=== PATIENT | male | born 1940 | race Caucasian/White ===

== ENCOUNTER 2016-10-24 04:56 | Inpatient (IN) | payer MEDICARE, OTHER ==
[~2016-10-24] VITALS: Ht 180.3 cm; Wt 89.0 kg
[2016-10-24] VITALS (11 sets, daily range): BP systolic 118–185; BP diastolic 61–90; PULSE 67–111; RESP 16–18; TEMP 97.9; O2SAT 94–99
[2016-10-24] MEDS ORDERED: TAMS5CAP PO (05:04)
[2016-10-24] MEDS ORDERED: blood pressure med (05:06)
[2016-10-24] MEDS ORDERED: ASPIRIN 81 MG CHEW TAB PO ONE (05:15)
[2016-10-24] MEDS ORDERED: SODIUM CHLORIDE 0.9% FLUSH 5 ML FLUSH IVF PRN (05:15)
[2016-10-24] MEDS ORDERED: NITROGLYCERIN 2% OINT 1 GM PACKET TOP ONE (05:15)
[2016-10-24] MEDS: NITROGLYCERIN 0.4 MG SL 25 TABS/BTL SL SCH ×3 (05:25→05:55)
[2016-10-24 05:36] LABS: AUTOMATED NEUTROPHIL # 4.1 TH/MM3 (1.8-7.7); BASOPHIL # 0.1 TH/MM3 (0-0.2); BASOPHIL % 0.9 % (0.0-2.0); EOSINOPHIL # 0.2 TH/MM3 (0-0.4); EOSINOPHIL % 3.2 % (0.0-4.0); HEMATOCRIT 42.3 % (39.0-51.0); HEMO FLAGS DIFF FINAL; LYMPH % 23.6 % (9.0-44.0); LYMPHOCYTE # 1.6 TH/MM3 (1.0-4.8); MEAN CELL VOLUME 92.9 FL (80.0-100.0); MEAN CORPUSCULAR HEMOGLOBIN 32.4 PG (27.0-34.0); MEAN CORPUSCULAR HGB CONC 34.9 % (32.0-36.0); MONO % 13.1 % (0.0-8.0); NEUT % 59.2 % (16.0-70.0); PLATELET COUNT 142 TH/MM3 (150-450); RED BLOOD COUNT 4.56 MIL/MM3 (4.50-5.90); RED CELL DISTRIBUTION WIDTH 16.1 % (11.6-17.2); WHITE BLOOD COUNT 6.9 TH/MM3 (4.0-11.0)
[2016-10-24] MEDS ORDERED: THIAMINE INJ 100 MG in SODIUM CHLORIDE 0.9% INJ 100 ML IV ONE (05:45)
[2016-10-24] MEDS ORDERED: MAGNESIUM SULFATE 1 GM PREMIX 100 ML IV ONE (05:45)
[2016-10-24 05:48] LABS: APTT (PATIENT) 24.3 SEC (24.3-30.1); INTERNATIONAL NORMALIZED RATIO 0.9 RATIO
--- NOTE | 2016-10-24 05:52 | RADRPT ---
EXAM DATE/TIME: 10/24/2016 05:21 [facility] COMPARISON: No previous studies available for comparison. INDICATIONS : Chest and abdominal pain x 3 weeks. MEDICAL HISTORY : Hypertension. Diabetes mellitus type II. Myocardial infarction. COPD, A-FIB SURGICAL HISTORY : Pacemaker. ENCOUNTER: Initial ACUITY: 3 weeks PAIN SCORE: 4/10 LOCATION: Bilateral chest FINDINGS: A single view of the chest demonstrates the lungs to be symmetrically aerated without evidence of mas s, infiltrate or effusion. Heart normal in size. Left-sided pacemaker with single intact lead. The ca rdiomediastinal contours are unremarkable. Osseous structures are intact. CONCLUSION: No acute disease. Joe Suero MD on October 24, 2016 at 5:50 Board Certified Radiologist. This report was verified electronically.
--- NOTE | 2016-10-24 06:02 | PD ---
HPI Chief Complaint: Chest Pain Time Seen by Provider: 05:13 Travel History International Travel<30 days: No Contact w/Intl Traveler<30days: No Traveled to known affect area: No History of Present Illness HPI The patient is 76 year old male who presents to the [facility] emergency department with a history of chest pain that he reports began at 4 PM yesterday. The patient reports that the pain isn't constant. He reports that it is associated with nausea without vomiting. He reports that he has had shortness of breath and diaphoresis. The patient reports that he has a history of coronary artery disease status post myocardial infarction in the past. He reports that his last cardiac catheterization was 4 months ago in [place]. He denies having any stents placed. The patient reports that he does have a history of congestive heart failure and atrial fibrillation, prostate cancer, COPD, hypertension, diabetes mellitus. He reports that he stopped taking his medications a month ago as he did not like taking medications and he felt like he did not need them. The patient reports that he just arrived in the area from [place] a week ago. The patient reports that to relieve the pain he attempted to drink more alcohol. He reports that he normally drinks a pint of vodka per day. The patient reports that he smokes approximately half pack of cigarettes per day and has been attempting to quit over the last month. I review of systems, the patient reports that he has had some recent cough and congestion. The patient denies any known recent fevers, neck pain, abdominal pain, vomiting, diarrhea, urinary symptoms, or neurologic symptoms. [facility] Past Medical History Narrative Medical The patient's past medical history is significant for prostate cancer, COPD, congestive heart failure, atrial fibrillation, history of stroke, history of myocardial infarction, history of hypertension, diabetes mellitus. Atrial Fibrillation: Yes Cardiovascular Problems: Yes (stroke) Congestive Heart Failure: Yes COPD: Yes Diabetes: Yes Patient Takes Glucophage: No Hypertension: Yes Medical other: Yes (prostate ca) Myocardial Infarction: Yes Tetanus Vaccination: Unknown Influenza Vaccination: No Past Surgical History Narrative Surgical The patient's past surgical history is significant for a pacemaker placement. Pacemaker: Yes Social History Alcohol Use: Yes (1 pint of vodka daily.) Tobacco Use: Yes (one half pack per day) Substance Use: No Allergies-Medications (Allergen,Severity, Reaction): Coded Allergies: No Known Allergies (Unverified , 10/24/16) Reported Meds & Prescriptions Reported Meds & Active Scripts Active Reported [blood pressure med] patient does not know what blood pressure med it is Flomax (Tamsulosin HCl) 0.4 Mg Cap 0.4 Mg PO HS Review of Systems Except as stated in HPI: all other systems reviewed are Neg General / Constitutional: No: Fever Eyes: No: Visual changes HENT: Positive: Congestion, No: Headaches Cardiovascular: Positive: Chest Pain or Discomfort, Diaphoresis, Dyspnea on exertion Respiratory: Positive: Cough, Shortness of Breath Gastrointestinal: Positive: Nausea, No: Abdominal Pain Genitourinary: No: Dysuria Musculoskeletal: No: Pain Skin: No Rash Neurologic: No: Weakness Psychiatric: No: Depression Endocrine: No: Polydipsia Hematologic/Lymphatic: No: Easy Bruising Physical Exam Narrative General: The patient is a well-developed well-nourished male in no acute distress. Head and Neck exam: Head is normocephalic atraumatic. Eyes: Pupils are equal round and reactive to light. Nose: Midline septum with pink mucous membranes Mouth: Dentition unremarkable. Moist mucus membranes. Posterior oropharynx is not erythematous. No tonsillar hypertrophy. Uvula midline. Airway patent. Neck: No palpable lymphadenopathy. No nuchal rigidity. No thyromegaly. Cardiovascular: Irregularly irregular with a rate in the 90s to low 100 without murmurs, gallops , or rubs. The patient's telemetry is consistent with his prior history of atrial fibrillation. Lungs: Clear to auscultation bilaterally. No wheezes, rhonchi, or rales. Abdomen: Soft, tenderness reported on palpation of the midepigastric area. No other tenderness on palpation of the other quadrants of the abdomen. Normal bowel sounds are audible. No guarding, rebound, or rigidity. No tenderness on palpation of McBurney's point. Extremities: No clubbing, cyanosis, or edema. 2+ pulses in all 4 extremities. No calf tenderness on palpation. Neurologic Exam: Grossly nonfocal. Skin Exam: No rash noted. Intact skin that is warm and dry. Data Data Last Documented VS Vital Signs Date Time Temp Pulse Resp B/P Pulse Ox O2 Delivery O2 Flow Rate FiO2 10/24/16 06:29 69 18 134/74 98 Nasal Cannula 2 10/24/16 04:58 97.9 Orders Electrocardiogram (10/24/16 05:13) B-Type Natriuretic Peptide (10/24/16 05:13) Ckmb (Isoenzyme) Profile (10/24/16 05:13) Complete Blood Count With Diff (10/24/16 05:13) Comprehensive Metabolic Panel (10/24/16 05:13) D-Dimer (10/24/16 05:13) Magnesium (Mg) (10/24/16 05:13) Prothrombin Time / Inr (Pt) (10/24/16 05:13) Act Partial Throm Time (Ptt) (10/24/16 05:13) Troponin I (10/24/16 05:13) Chest, Single Ap (10/24/16 05:13) Ecg Monitoring (10/24/16 05:13) Bilateral Bp Monitoring (10/24/16 05:13) Iv Access Insert/Monitor (10/24/16 05:13) Oximetry (10/24/16 05:13) Oxygen Administration (10/24/16 05:13) Aspirin Chew (Aspirin Chew) (10/24/16 05:15) Nitroglycerin 2% Oint (Nitroglycerin 2% (10/24/16 05:15) Sodium Chloride 0.9% Flush (Ns Flush) (10/24/16 05:15) Nitroglycerin Sl (Nitrostat Sl) (10/24/16 05:15) C-Reactive Protein (Crp) (10/24/16 05:13) Lipase (10/24/16 05:13) Blood Culture (10/24/16 05:13) Lactic Acid Sepsis Protocol (10/24/16 05:13) Magnesium Sulfate 1 Gm Premix (Magnesium (10/24/16 05:45) Thiamine Inj (Thiamine Inj) (10/24/16 05:45) Morphine Inj (Morphine Inj) (10/24/16 06:15) Ondansetron Inj (Zofran Inj) (10/24/16 06:15) Pantoprazole Inj (Protonix Inj) (10/24/16 06:15) CKMB (10/24/16 05:25) CKMB% (10/24/16 05:25) Sodium Chlor 0.9% 1000 Ml Inj (Ns 1000 M (10/24/16 06:15) Ct Pulmonary Angiogram (10/24/16 06:14) Alcohol (Ethanol) (10/24/16 06:15) Urinalysis - C+S If Indicated (10/24/16 06:18) Iohexol 350 Inj (Omnipaque 350 Inj) (10/24/16 06:38) Place In Observation (10/24/16 ) Vital Signs (Adult) Q4H (10/24/16 06:41) Activity Oob With Assistance (10/24/16 06:41) ^ Top Hat Body Maker / Telemetry .CONTINUOUS (10/24/16 06:41) Intake + Output KAILEE.QSHIFT (10/24/16 06:41) Diet Heart Healthy (10/24/16 Breakfast) Sodium Chlor 0.9% 1000 Ml Inj (Ns 1000 M (10/24/16 06:41) Sodium Chloride 0.9% Flush (Ns Flush) (10/24/16 06:45) Sodium Chloride 0.9% Flush (Ns Flush) (10/24/16 09:00) Ondansetron Inj (Zofran Inj) (10/24/16 06:45) Bisacodyl Supp (Dulcolax Supp) (10/24/16 06:45) Comprehensive Metabolic Panel (10/25/16 06:00) Complete Blood Count With Diff (10/25/16 06:00) Troponin I (10/24/16 11:00) Troponin I (10/24/16 17:00) Scd Bilateral/Knee High KAILEE.BID (10/24/16 06:41) Jordon Bilateral/Knee High KAILEE.QSHIFT (10/24/16 06:41) Acetaminophen (Tylenol) (10/24/16 06:45) Morphine Inj (Morphine Inj) (10/24/16 06:45) Oxycodone (Roxicodone) (10/24/16 06:45) Intake + Output KAILEE.QSHIFT (10/24/16 06:41) ^ Seizure Precautions (10/24/16 06:41) Multivitamin Inj (Mvi-12 Inj)... (10/24/16 06:45) Thiamine Inj (Thiamine Inj) (10/25/16 06:45) Thiamine (Vit B1) (Vitamin B1) (10/27/16 09:00) Tamsulosin (Flomax) (10/24/16 21:00) Lactic Acid (10/24/16 11:00) Admit Order (Ed Use Only) (10/24/16 07:06) Labs Laboratory Tests Test 10/24/16 05:25 White Blood Count 6.9 TH/MM3 Red Blood Count 4.56 MIL/MM3 Hemoglobin 14.8 GM/DL Hematocrit 42.3 % Mean Corpuscular Volume 92.9 FL Mean Corpuscular Hemoglobin 32.4 PG Mean Corpuscular Hemoglobin 34.9 % Concent Red Cell Distribution Width 16.1 % Platelet Count 142 TH/MM3 Mean Platelet Volume 8.0 FL Neutrophils (%) (Auto) 59.2 % Lymphocytes (%) (Auto) 23.6 % Monocytes (%) (Auto) 13.1 % Eosinophils (%) (Auto) 3.2 % Basophils (%) (Auto) 0.9 % Neutrophils # (Auto) 4.1 TH/MM3 Lymphocytes # (Auto) 1.6 TH/MM3 Monocytes # (Auto) 0.9 TH/MM3 Eosinophils # (Auto) 0.2 TH/MM3 Basophils # (Auto) 0.1 TH/MM3 CBC Comment DIFF FINAL Differential Comment Prothrombin Time 10.0 SEC Prothromb Time International 0.9 RATIO Ratio Activated Partial 24.3 SEC Thromboplast Time D-Dimer Quantitative (PE/DVT) 1.62 MG/L FEU Sodium Level 139 MEQ/L Potassium Level 5.1 MEQ/L Chloride Level 107 MEQ/L Carbon Dioxide Level 23.6 MEQ/L Anion Gap 8 MEQ/L Blood Urea Nitrogen 15 MG/DL Creatinine 1.05 MG/DL Estimat Glomerular Filtration 69 ML/MIN Rate Random Glucose 131 MG/DL Lactic Acid Level 3.0 mmol/L Calcium Level 8.0 MG/DL Magnesium Level 1.9 MG/DL Total Bilirubin 0.6 MG/DL Aspartate Amino Transf 99 U/L (AST/SGOT) Alanine Aminotransferase 69 U/L (ALT/SGPT) Alkaline Phosphatase 75 U/L Total Creatine Kinase 108 U/L Creatine Kinase MB 1.7 NG/ML Troponin I LESS THAN 0.02 NG/ML C-Reactive Protein 0.48 MG/DL B-Type Natriuretic Peptide 105 PG/ML Total Protein 6.6 GM/DL Albumin 3.1 GM/DL Lipase 130 U/L [facility] Medical Decision Making Medical Screen Exam Complete: Yes Emergency Medical Condition: Yes Medical Record Reviewed: Yes Interpretation(s) Last Impressions CT Angiography 10/24/16613 Signed Impressions: Service Date/Time: Monday, October 24, 2016 06:30 - CONCLUSION: 1. No evidence for pulmonary emboli. 2. Moderate/severe emphysema without infiltrate. 3. Nonspecific 1.9 cm low-density in the left lobe of the liver. Nonemergent abdominal sonogram maybe warranted. 4. Left-sided pacemaker. Joe Suero MD Chest X-Ray 10/24/16512 Signed Impressions: Service Date/Time: Monday, October 24, 2016 05:21 - CONCLUSION: No acute disease. Joe Suero MD Differential Diagnosis Acute coronary syndrome, versus congestive heart failure exacerbation, versus pneumonia, versus exacerbation of cardiac arrhythmia, versus electrolyte abnormality, versus pancreatitis, versus acid reflux Narrative Course During the course of the patients emergency department visit, the patients history, examination, and differential diagnosis were reviewed with the patient. The patient had IV access obtained and blood work sent for analysis. The patient was placed on a monitor and storage bin tender with oximetry and blood pressure monitoring. An EKG was done on arrival. The patient's EKG reveals atrial fibrillation with RVR, heart rate of 100, occasional PVCs are noted, nonspecific ST abnormalities are noted, no acute ST segment elevation is noted. T waves are inverted in V3, V4, V5, V6. The patient was brought in by ambulance services and was given 2 baby aspirin and 1 sublingual nitroglycerin prior to arrival. The patient was provided nitroglycerin sublingual every 5 minutes 3 when necessary pain. The patient was given nitroglycerin 1 inch the chest wall. The patient was noted on the monitor and storage bin tender to have episodes of nonsustained V. tach without any other associated symptoms. Has were placed on the patient' s chest wall. The patient was started on magnesium 1 g IV. The patient was given morphine for pain, Zofran for nausea. The patients laboratory studies were reviewed and remarkable for a white count of 6.9, hemoglobin 14.8, platelets 142 with 13.1 monocytes. CMP is remarkable for GFR 69, glucose 131, lactic acid 3.0, calcium 8.0, AST 99, CPK 108, troponin I less than 0.02, C-reactive protein 0.48, BNP is 105, lipase 130, d- dimer is 1.62, PT PTT within normal limits. Due to the elevated d-dimer the patient will have a CTA to rule out PE. Due to the patient's elevated lactic acid the patient will be given normal saline IV fluids. Radiology studies were reviewed and remarkable for a chest x-ray that is unremarkable. CTA to rule out PE is negative for pulmonary embolism. The patients results were discussed with the patient, including the plan of care. I explained that further testing and/ or monitoring is indicated based on the patients history, examination, and/ or laboratory findings. Therefore, I recommended admission for additional evaluation. The patient expressed understanding and was agreeable with this plan. The patient was admitted to the hospital in guarded condition and sent to a bed under the care of the [facility]. Sepsis Criteria SIRS Criteria (2 or more): Heart rate over 90 Severe Sepsis (+one): Lactate >2 Physician Communication Physician Communication The patient's case was discussed with Dr. Enriquez who did agree to admit the patient for further evaluation and treatment at this time. Diagnosis Primary Impression: Chest pain, rule out acute myocardial infarction Additional Impressions: History of coronary artery disease Lactic acidosis Admitting Information Admitting Physician Requests: it Leela Ramos MD Oct 24, 2016 06:01
[2016-10-24 06:03] LABS: ALKALINE PHOSPHATASE 75 U/L (45-117); ALT (GPT) 69 U/L (12-78); ANION GAP 8 MEQ/L (5-15); AST (GOT) 99 U/L (15-37); BICARBONATE 23.6 MEQ/L (21.0-32.0); BLOOD UREA NITROGEN 15 MG/DL (7-18); CHLORIDE 107 MEQ/L (98-107); CREATINE KINASE 108 U/L (39-308); GLOMERULAR FILTRATION RATE 69 ML/MIN (>89); MAGNESIUM 1.9 MG/DL (1.5-2.5); SODIUM (NA) 139 MEQ/L (136-145); TOTAL BILIRUBIN ADULT 0.6 MG/DL (0.2-1.0)
[2016-10-24 06:06] LABS: POTASSIUM 5.1 MEQ/L (3.5-5.1)
[2016-10-24] MEDS ORDERED: MORPHINE SULFATE 4 MG/ML INJ IV PUSH ONE (06:15)
[2016-10-24] MEDS ORDERED: SODIUM CHLOR 0.9% 1000 ML INJ 1,000 ML IV ONE (06:15)
[2016-10-24] MEDS ORDERED: ONDANSETRON HCL 4 MG/2 ML VIAL IV PUSH ONE (06:15)
[2016-10-24] MEDS ORDERED: PANTOPRAZOLE SODIUM 40 MG VIAL IV PUSH ONE (06:15)
[2016-10-24 06:19] LABS: CKMB 1.7 NG/ML (0.5-3.6)
[2016-10-24] MEDS ORDERED: IOHEXOL 350 MG/ML 10 ML VIAL (for RAD DIAG) IV ONE (06:38)
[2016-10-24] MEDS ORDERED: SODIUM CHLOR 0.9% 1000 ML INJ 1,000 ML IV SCH (06:41)
[2016-10-24] MEDS ORDERED: BISACODYL 10 MG SUPP PR PRN (06:45)
[2016-10-24] MEDS ORDERED: ACETAMINOPHEN 325 MG TAB PO PRN (06:45)
[2016-10-24] MEDS ORDERED: ONDANSETRON HCL 4 MG/2 ML VIAL IVP PRN (06:45)
[2016-10-24] MEDS ORDERED: SODIUM CHLORIDE 0.9% FLUSH 5 ML FLUSH FLUSH PRN (06:45)
--- NOTE | 2016-10-24 06:51 | RADRPT ---
EXAM DATE/TIME: 10/24/2016 06:30 [facility] COMPARISON: CHEST SINGLE AP, October 24, 2016, 5:21. INDICATIONS : Chest pain. Evaluate for embolism. IV CONTRAST: 80 cc Omnipaque 350 (iohexol) IV RADIATION DOSE: 18.13 CTDIvol (mGy) MEDICAL HISTORY : Chronic obstructive pulmonary disease. Hypertension. Congestive heart failure. SURGICAL HISTORY : Pacemaker. ENCOUNTER: Initial ACUITY: 1 day PAIN SCALE: 5/10 LOCATION: chest TECHNIQUE: Volumetric scanning of the chest was performed using a pulmonary embolism protocol MIP images were re constructed. Using automated exposure control and adjustment of the mA and/or kV according to patien t size, radiation dose was kept as low as reasonably achievable to obtain optimal diagnostic quality images. FINDINGS: PULMONARY ARTERIES: No filling defects are seen in the pulmonary arteries through the segmental level. LUNGS: Moderate/severe centrilobular emphysema. There is no consolidation or pneumothorax . No concerning p ulmonary nodule is visualized. PLEURAE: There is no pleural thickening or pleural effusion. MEDIASTINUM: There is good visualization of the great vessels of the middle mediastinum. No evidence of mediastin al or hilar adenopathy/mass. Minimal coronary artery calcifications. MUSCULOSKELETAL: Within normal limits for patient age. MISCELLANEOUS: The visualized upper abdominal organs demonstrate no acute abnormality. Left-sided pacemaker. CONCLUSION: 1. No evidence for pulmonary emboli. 2. Moderate/severe emphysema without infiltrate. 3. Nonspecific 1.9 cm low-density in the left lobe of the liver. Nonemergent abdominal sonogram maybe warranted. 4. Left-sided pacemaker. Joe Suero MD on October 24, 2016 at 6:46 Board Certified Radiologist. This report was verified electronically.
[2016-10-24] MEDS: MULTIVITAMIN INJ 10 ML, FOLIC ACID INJ 1 MG in SODIUM CHLORID 0.9% 500 ML INJ 500 ML IV SCH (07:26)
[2016-10-24 07:30] LABS: LACTIC ACID GHOST NOT REPORTABLE
--- NOTE | 2016-10-24 08:20 | EKG ---
Date Performed: 10/24/2016 Time Performed: 04:56:32 PTAGE: 76 years EKG: ATRIAL FIBRILLATION WITH RAPID VENTRICULAR RESPONSE SEPTAL MYOCARDIAL INFARCTION T-WAVE ABN ORMALITY, CONSIDER ANTEROLATERAL AND INFERIOR ISCHEMIA ABNORMAL ECG NO PREVIOUS TRACING DOCTOR: Piotr Arce Interpretating Date/Time 10/24/2016 08:19:53
[2016-10-24 08:50] LABS: BLOOD, URINE NEG (NEG); GLUCOSE,URINE NEG (NEG); KETONE, URINE NEG (NEG); MUCUS URINE FEW /lpf (OCC); NITRITE,URINE NEG (NEG); PH, URINE 5.5 (5.0-8.5); URINE COLOR YELLOW (YELLW/STRAW)
[2016-10-24 08:53] LABS: COMMENT (UR) CULT NOT INDICATED; CULTURE IF INDICATED CULT NOT INDICATED
[2016-10-24] MEDS: SODIUM CHLORIDE 0.9% FLUSH 5 ML FLUSH FLUSH SCH ×2 (09:00→20:54)
[2016-10-24] MEDS: MORPHINE SULFATE 4 MG/ML INJ IV PRN ×2 (10:37→16:25)
[2016-10-24] MEDS ORDERED: RESP: ALBUTEROL 2.5 MG/IPRATROPIUM 0.5 MG NEB (PRN) NEB (11:15)
[2016-10-24] MEDS: LORazepam 2 MG/ML VIAL IV PUSH PRN ×2 (13:56→21:17)
[2016-10-24] MEDS: FOLIC ACID 1 MG TAB PO SCH (14:00)
[2016-10-24] MEDS ORDERED: LORazepam 2 MG/ML VIAL IV PUSH PRN (14:00)
[2016-10-24] MEDS ORDERED: THIAMINE INJ 100 MG in SODIUM CHLORIDE 0.9% INJ 100 ML IV SCH (14:00)
[2016-10-24] MEDS ORDERED: LORazepam 2 MG TAB PO PRN (14:00)
[2016-10-24] MEDS ORDERED: FLUMAZENIL 1 MG/10 ML VIAL IV PUSH PRN (14:00)
[2016-10-24] MEDS: MULTIVITAMIN TAB PO SCH (14:00)
--- NOTE | 2016-10-24 15:51 | EC ---
Study Study Date:10/24/2016 STUDY CONCLUSIONS SUMMARY - Left ventricle: The cavity size was normal. Wall thickness was normal. Systolic function was normal. The estimated ejection fraction was in the range of 60% to 65%. - Aortic valve: Valve area: 1.8cm^2 (Vmax). - Tricuspid valve: Mild regurgitation. If LV function is below 40, please consider prescribing an ACEI or ARB or document rationale for non-use. PROCEDURE DATA STUDY STATUS: Elective. Procedure: Transthoracic echocardiography. Image quality was suboptimal. Scanning was performed from the parasternal, apical, and subcostal acoustic windows. Study completion: The patient tolerated the procedure well. Transthoracic echocardiography. M-mode, complete 2D, complete spectral Doppler, and color Doppler. Patient status: Inpatient. CARDIAC ANATOMY LEFT VENTRICLE: The cavity size was normal. Wall thickness was normal. Systolic function was normal. The estimated ejection fraction was in the range of 60% to 65%. Images were inadequate for LV wall motion assessment. AORTIC VALVE: Trileaflet; normal thickness leaflets. Doppler: Transvalvular velocity was within the normal range. There was no stenosis. No regurgitation. Valve area: 1.8cm^2 (Vmax). AORTA: Aortic root: The aortic root was normal in size and mildly calcified. MITRAL VALVE: Structurally normal valve. Doppler: Transvalvular velocity was within the normal range. There was no evidence for stenosis. No regurgitation. LEFT ATRIUM: The atrium was normal in size. RIGHT VENTRICLE: The cavity size was normal. Wall thickness was normal. Pacer wire or catheter noted in right ventricle. PULMONIC VALVE: Doppler: Transvalvular velocity was within the normal range. There was no evidence for stenosis. No regurgitation. TRICUSPID VALVE: Structurally normal valve. Doppler: Transvalvular velocity was within the normal range. Mild regurgitation. PULMONARY ARTERY: Not visualized. Systolic pressure was within the normal range. RIGHT ATRIUM: The atrium was normal in size. PERICARDIUM: There was no pericardial effusion. SYSTEMIC VEINS: Inferior vena cava: Not visualized. BASIC MEASUREMENTS ADULT Normal Left ventricle LV internal dimension, ED, chordal level, *36.3 mm 43-52 PLAX LV internal dimension, ES, chordal level, 25.2 mm 23-38 PLAX Fractional shortening, chordal level, PLAX 31 % >29 LV posterior wall thickness, ED 10.9 mm IVS/LVPW ratio, ED 0.94 <1.3 Ventricular septum Septal thickness, ED 10.2 mm Aortic valve Leaflet separation 15 mm 15-26 BASIC MEASUREMENTS ADULT Normal Aortic valve Leaflet separation 15 mm 15-26 Aorta Root diameter, ED 30 mm 20-37 Left atrium Anterior-posterior dimension, ES *52 mm 19-40 LA/aortic root ratio 1.73 DOPPLER MEASUREMENTS ADULT Normal Main pulmonary artery Pressure, S 27 mm Hg =30 Aortic valve Peak velocity, S 125 cm/s Valve area, Vmax 1.8 cm^2 Tricuspid valve Regurgitant peak velocity 238 cm/s Peak RV-RA gradient, S 23 mm Hg Maximal regurgitant velocity 238 cm/s Systemic veins Estimated CVP 10 mm Hg Right ventricle RV pressure, S *33 mm Hg <30 Pulmonic valve Peak velocity, S 126 cm/s LEGEND: Mean values are shown as u=mean value. Asterisk (*) chávez values outside specified normal range. Prepared and signed by Chucky Ramos [id number]
[2016-10-24] MEDS: INSULIN ASPART SUPPLEMENTAL SCALE SQ SCH ×2 (16:00→21:00)
[2016-10-24] MEDS ORDERED: DILTIAZEM INJ 125 MG in SODIUM CHLORIDE 0.9% INJ 100 ML IV SCH (16:00)
[2016-10-24] MEDS ORDERED: DILTIAZEM HCL 25 MG/5 ML VIAL IVP ONE (16:00)
--- NOTE | 2016-10-24 16:09 | HHI.HP ---
[facility] No Primary Care Physician Admission Diagnosis CP RO SD, ho CAD, lactic acidosis Diagnoses: Chief Complaint: Chest pain, shortness of breath Travel History International Travel<30 Days: No Contact w/Intl Traveler <30 Da: No Traveled to Known Affected Are: No History of Present Illness The patient is a 76-year-old male with a past medical history of atrial fibrillation and heart failure who is presenting to the hospital with chest pain and shortness of breath. The patient says he was diagnosed with atrial fibrillation about 7 years ago and he says since then he has had problems with an elevated heart rate and episodes of chest pain and shortness of breath. He says the pain is located in the center of his chest and radiates down both arms. He rates the pain as a 9 out of 10 in severity. He says it is accompanied by shortness of breath and sweating. He says he felt like he couldn 't breathe. He says he generally gets these kind of episodes of chest pain one his atrial fibrillation acts up. He says he had a stress test done 6 months ago that was normal. 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 He says he had an ablation and a pacemaker placed years ago. He also mentions that he drinks a lot of alcohol and feels shaky. He is requesting medication to help with that. He denies a history of alcohol withdrawal seizure. The patient does endorse nausea and lack of appetite. Patient also states that he feels his right leg and arm are weak. He thinks he may have had a stroke in the past but he is not sure. Review of Systems Constitutional: COMPLAINS OF: Diaphoretic episodes, Change in appetite Respiratory: COMPLAINS OF: Cough, Shortness of breath Cardiovascular: COMPLAINS OF: Chest pain, Palpitations, Dyspnea on Exertion Gastrointestinal: COMPLAINS OF: Nausea Neurologic: COMPLAINS OF: Abnormal gait, Localized weakness, Tremor Psychiatric: COMPLAINS OF: Anxiety, Depression Past Family Social History Past Medical History Atrial fibrillation CAD CHF COPD Type 2 diabetes Hypertension Prostate cancer in remission Questionable history of CVA with right sided weakness Past Surgical History Ablation Pacemaker placement Allergies: Coded Allergies: No Known Allergies (Unverified , 10/24/16) Active Ordered Medications Current Medications Medications (Trade) Dose Ordered Sig/Bruon Route Start Time Stop Time Status Last Admin (NS 1000 ml Inj) 1,000 ml @ 100 mls/hr Q10H IV 10/24/16 06:41 10/24/16 16:40 10/24/16 12:32 (NS Flush) 2 ml UNSCH PRN FLUSH 10/24/16 06:45 (NS Flush) 2 ml BID FLUSH 10/24/16 09:00 (Zofran Inj) 4 mg Q6H PRN IVP 10/24/16 06:45 (Dulcolax Supp) 10 mg DAILY PRN MA 10/24/16 06:45 (Tylenol) 650 mg Q6H PRN PO 10/24/16 06:45 (Morphine Inj) 2 mg Q3H PRN IV 10/24/16 06:45 10/24/16 10:37 Oxycodone HCl 5 mg 5 mg Q4H PRN PO 10/24/16 06:45 10/24/16 07:30 (Mvi-12 Inj/ Folvite Inj/NS 500 ml Inj) 510.2 ml @ 125 mls/hr Q24H IV 10/24/16 06:45 10/29/16 06:44 10/24/16 07:26 (Vitamin B1) 100 mg DAILY PO 10/27/16 09:00 (Flomax) 0.4 mg HS PO 10/24/16 21:00 (Colace) 100 mg BID PO 10/24/16 21:00 (Ativan) 1 mg Q4H PRN PO 10/24/16 14:00 (Ativan Inj) 1 mg Q4H PRN IV PUSH 10/24/16 14:00 10/24/16 13:56 (Ativan) 2 mg Q2H PRN PO 10/24/16 14:00 (Ativan Inj) 2 mg Q2H PRN IV PUSH 10/24/16 14:00 (Ativan Inj) 2 mg Q1H PRN IV PUSH 10/24/16 14:00 (Ativan Inj) 2 mg Q15M PRN IV PUSH 10/24/16 13:45 (Folate) 1 mg DAILY PO 10/24/16 15:00 Multivitamins 1 tab 1 tab DAILY PO 10/24/16 15:00 (Thiamine Inj/NS Inj) 101 ml @ 101 mls/hr DAILY IV 10/25/16 09:00 Diltiazem HCl 20 mg 20 mg ONCE ONCE IVP 10/24/16 16:00 10/24/16 16:01 (Cardizem Inj/NS Inj) 125 ml @ 0 mls/hr TITRATE IV 10/24/16 16:00 (Cardizem) 60 mg QID PO 10/24/16 18:00 (Ecotrin Ec) 325 mg DAILY PO 10/25/16 09:00 Family History CAD Social History The pt smokes a half a pack a day. He drinks a pint of vodka daily. Has a history of opiate abuse. Physical Exam Vital Signs Vital Signs Date Time Temp Pulse Resp B/P Pulse Ox O2 Delivery O2 Flow Rate FiO2 10/24/16 13:58 95 18 185/90 96 Room Air 10/24/16 10:42 16 10/24/16 09:35 94 16 142/69 95 Room Air 10/24/16 08:27 16 10/24/16 06:29 69 18 134/74 98 Nasal Cannula 2 10/24/16 06:28 98 Nasal Cannula 2 10/24/16 06:28 98 Nasal Cannula 2 10/24/16 04:58 97.9 111 18 127/70 94 Physical Exam GENERAL: This is a well-nourished, well-developed patient, in no apparent distress. SKIN: No rashes, ecchymoses or lesions. Cool and dry. HEAD: Atraumatic. Normocephalic. No temporal or scalp tenderness. EYES: Pupils equal round and reactive. Extraocular motions intact. No scleral icterus. No injection or drainage. ENT: Nose without bleeding, purulent drainage or septal hematoma. Throat without erythema, tonsillar hypertrophy or exudate. Uvula midline. Airway patent. NECK: Trachea midline. No JVD or lymphadenopathy. Supple, nontender, no meningeal signs. CARDIOVASCULAR: Tachycardic. Irregularly irregular rhythm. RESPIRATORY: Decreased breath sounds. Mild wheezing noted. GASTROINTESTINAL: Abdomen soft, non-tender, nondistended. No hepato-splenomegaly , or palpable masses. No guarding. MUSCULOSKELETAL: Extremities without clubbing, cyanosis, or edema. No joint tenderness, effusion, or edema noted. NEUROLOGICAL: Awake and alert. Cranial nerves II through XII intact. Motor and sensory grossly within normal limits. Five out of 5 muscle strength in all muscle groups. Normal speech. PSYCH: Mood and affect appropriate. Laboratory Laboratory Tests Test 10/24/16 10/24/16 10/24/16 10/24/16 05:25 08:05 08:25 12:39 White Blood Count 6.9 Red Blood Count 4.56 Hemoglobin 14.8 Hematocrit 42.3 Mean Corpuscular Volume 92.9 Mean Corpuscular Hemoglobin 32.4 Mean Corpuscular Hemoglobin 34.9 Concent Red Cell Distribution Width 16.1 Platelet Count 142 Mean Platelet Volume 8.0 Neutrophils (%) (Auto) 59.2 Lymphocytes (%) (Auto) 23.6 Monocytes (%) (Auto) 13.1 Eosinophils (%) (Auto) 3.2 Basophils (%) (Auto) 0.9 Neutrophils # (Auto) 4.1 Lymphocytes # (Auto) 1.6 Monocytes # (Auto) 0.9 Eosinophils # (Auto) 0.2 Basophils # (Auto) 0.1 CBC Comment DIFF FINAL Differential Comment Prothrombin Time 10.0 Prothromb Time International 0.9 Ratio Activated Partial 24.3 Thromboplast Time D-Dimer Quantitative (PE/DVT) 1.62 Sodium Level 139 Potassium Level 5.1 Chloride Level 107 Carbon Dioxide Level 23.6 Anion Gap 8 Blood Urea Nitrogen 15 Creatinine 1.05 Estimat Glomerular Filtration 69 Rate Random Glucose 131 Lactic Acid Level 3.0 2.7 2.5 Calcium Level 8.0 Magnesium Level 1.9 Total Bilirubin 0.6 Aspartate Amino Transf 99 (AST/SGOT) Alanine Aminotransferase 69 (ALT/SGPT) Alkaline Phosphatase 75 Total Creatine Kinase 108 Creatine Kinase MB 1.7 Troponin I LESS THAN 0.02 0.02 C-Reactive Protein 0.48 B-Type Natriuretic Peptide 105 Total Protein 6.6 Albumin 3.1 Lipase 130 Urine Color YELLOW Urine Turbidity CLEAR Urine pH 5.5 Urine Specific [place] 1.025 Urine Protein NEG Urine Glucose (UA) NEG Urine Ketones NEG Urine Occult Blood NEG Urine Nitrite NEG Urine Bilirubin NEG Urine Urobilinogen LESS THAN 2.0 Urine Leukocyte Esterase NEG Urine RBC LESS THAN 1 Urine WBC 2 Urine Mucus FEW Microscopic Urinalysis Comment CULT NOT INDICATED Date/Time Procedure Status Source Growth 10/24/16 05:50 Aerobic Blood Culture Received Blood Peripheral Pending 10/24/16 05:50 Anaerobic Blood Culture Received Blood Peripheral Pending Result Diagram: 10/24/1652410/24/[address] Angiography 10/24/16613 Signed Impressions: Service Date/Time: Monday, October 24, 2016 06:30 - CONCLUSION: 1. No evidence for pulmonary emboli. 2. Moderate/severe emphysema without infiltrate. 3. Nonspecific 1.9 cm low-density in the left lobe of the liver. Nonemergent abdominal sonogram maybe warranted. 4. Left-sided pacemaker. Joe Suero MD Chest X-Ray 10/24/16512 Signed Impressions: Service Date/Time: Monday, October 24, 2016 05:21 - CONCLUSION: No acute disease. Joe Suero MD Assessment and Plan Assessment and Plan Atrial fibrillation with RVR Chronic problem. Was previously on Coumadin but has been taken off of it in favor of aspirin, likely secondary to alcohol abuse and falls. He does not follow with cardiology in [place]. Echo with EF of 60-65%. - Cardizem drip. Start by mouth Cardizem as well. - Monitor on telemetry. - Trend troponins. - Start full strength aspirin. Patient is a poor candidate for full anticoagulation as above. - Check TSH level. Chest pain/ dyspnea Likely secondary to atrial fibrillation. The patient says he typically gets these symptoms when his A. fib acts up. Chest x-ray unremarkable. CT showed: No evidence for pulmonary emboli; Moderate/severe emphysema without infiltrate. The patient says he had a stress test 6 months ago which was normal. Initial 2 troponins negative. EKG with atrial fibrillation. - Continue to trend troponins. - Oxygen and nebulizers as needed. - Pain control with bowel regimen. - Consult cardiology. Lactic acidosis Likely secondary to A. fib with RVR and alcohol withdrawal. - Continue follow lactic acid level. - Treat underlying causes. - IVFs. Alcohol abuse The patient endorses a pint of vodka daily. He says he tries to drink his pain away. He also endorses depression. - [facility] protocol. - Alcohol cessation instruction. - Seizure precautions. - Physical therapy evaluation. Liver lesion On CT scan: Nonspecific 1.9 cm low-density in the left lobe of the liver. - obtain nonemergent liver US inpatient vs. outpt. Thrombocytopenia Likely s/t alcohol abuse. No evidence of bleeding. - continue to monitor. HTN Likely exacerbated by withdrawal and pain. - treatment as above. - Vasotec as needed. - Cardizem as above. COPD The pt smokes 1/2 PPD. - smoking cessation instruction. - nebs and oxygen as needed. - IS. - sputum culture and gram stain. DM Diet controlled. - insulin sliding scale and diabetic diet. PPx: Lovenox. Code Status Full. Discussed Condition With Pt, pt's nurse. Physician Certification 2 Midnight Certification Type: Admission for Inpatient Services Order for Inpatient Services The services are ordered in accordance with Medicare regulations or non- Medicare payer requirements, as applicable. In the case of services not specified as inpatient-only, they are appropriately provided as inpatient services in accordance with the 2-midnight benchmark. Estimated LOS (days): 2 days is the estimated time the patient will need to remain in the hospital, assuming treatment plan goals are met and no additional complications. Post-Hospital Plan: Home Thomas Hunt DO Oct 24, 2016 16:09
[2016-10-24] MEDS: ENOXAPARIN SODIUM 40 MG/0.4 ML SYRINGE SQ SCH (17:00)
[2016-10-24] MEDS: LORazepam 1 MG TAB PO PRN (17:43)
[2016-10-24] MEDS: DILTIAZEM HCL 60 MG TAB PO SCH ×2 (17:43→21:17)
[2016-10-24] MEDS: METOPROLOL TARTRATE 25 MG TAB PO SCH ×2 (18:20→21:17)
[2016-10-24] MEDS: TAMSULOSIN HCL 0.4 MG CAP PO SCH (21:17)
[2016-10-24] MEDS: DOCUSATE SODIUM 100 MG CAP PO SCH (21:17)
--- NOTE | 2016-10-24 22:17 | MB ---
cc: KELSI GALLO MD DATE OF CONSULTATION: 10/24/2016 REASON FOR CONSULTATION: Atrial fibrillation HISTORY OF PRESENT ILLNESS: Lopez Griffin is a 76-year-old who I am seeing for the first time. 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 He was in [place]. He says he was just visiting a friend here and ended up in our hospital. Apparently he has had a pacemaker placed in the past. He thinks it is [employer]. By his chest x-ray it is a single lead device. He has had a prior ablation. He has had a prior history of A-fib. I am getting the impression that his A-fib is chronic, based on him having only a single lead. About two weeks ago he had some left arm, left leg weakness. He has not been on any anticoagulation. I suspect this is due to his alcoholism. He drinks a pint of Vodka a day. We do not have anymore details about coronary artery disease or other cardiac history but apparently he has seen a coffee sampler before. PAST MEDICAL HISTORY: 1. Possible heart disease. 2. CHF. 3. COPD. 4. A-fib. 5. Type 2 diabetes. 6. Hypertension. 7. Prostate cancer. 8. Possible prior stroke. PAST SURGICAL HISTORY: 1. Ablation. 2. Pacemaker implant. MEDICATIONS: He was prescribed Cardizem 60 milligrams q6 hours. I have added metoprolol. FAMILY HISTORY: Positive for CAD. SOCIAL HISTORY: Notable for chronic longstanding smoking, half pack per day and also drinks a pint of Vodka a day. Also history of opiate use. PHYSICAL EXAMINATION: A well-developed, well-nourished white male. He is slightly tremulous. HEENT: Unremarkable. Neck: Reveals no JVD. CHEST: Chest shows diminished breath sounds with occasional wheezes. CARDIAC: S1-S2 tachycardiac. ABDOMEN: Soft, nontender. EXTREMITIES: No edema. Pulses are intact. EKG shows A-fib with rapid ventricular response. There is one ventricular paced beat, diffuse nonspecific ST-T wave changes. Cardiac enzymes are negative. LV function is preserved on his echo. IMPRESSION Suspect A-fib is chronic. He has increased ventricular rate. Cardizem has been started. Will add low dose beta-ekaterina. Chest pain. Chest pain occurring when he is having the A-fib flares. No evidence for ID. Poor candidate for cath because of his alcoholism. Will plan to treat this medically in particularly in view of the negative enzymes. Alcohol abuse. Chronic tobacco use. He was counseled to stop. Further therapy to be determined. MD RG Glover/AUGUSTINE /5:44 PM /10:09 PM
[2016-10-25] VITALS (24 sets, daily range): BP systolic 104–158; BP diastolic 53–84; PULSE 62–96; RESP 16–18; TEMP 97.8–98.6; O2SAT 93–98
[2016-10-25] MEDS: LORazepam 1 MG TAB PO PRN ×2 (02:15→13:00)
[2016-10-25 05:56] LABS: AUTOMATED NEUTROPHIL # 2.3 TH/MM3 (1.8-7.7); EOSINOPHIL # 0.3 TH/MM3 (0-0.4); EOSINOPHIL % 5.9 % (0.0-4.0); HEMATOCRIT 38.5 % (39.0-51.0); LYMPH % 21.7 % (9.0-44.0); MEAN CELL VOLUME 92.9 FL (80.0-100.0); MEAN CORPUSCULAR HEMOGLOBIN 31.1 PG (27.0-34.0); MEAN CORPUSCULAR HGB CONC 33.4 % (32.0-36.0); MONO % 19.7 % (0.0-8.0); NEUT % 51.7 % (16.0-70.0); PLATELET COUNT 91 TH/MM3 (150-450); RED BLOOD COUNT 4.15 MIL/MM3 (4.50-5.90); RED CELL DISTRIBUTION WIDTH 16.4 % (11.6-17.2); WHITE BLOOD COUNT 4.5 TH/MM3 (4.0-11.0)
[2016-10-25 06:00] LABS: HEMO FLAGS AUTO DIFF
[2016-10-25] MEDS: LORazepam 2 MG/ML VIAL IV PUSH PRN ×5 (06:19→23:53)
[2016-10-25] MEDS: MULTIVITAMIN INJ 10 ML, FOLIC ACID INJ 1 MG in SODIUM CHLORID 0.9% 500 ML INJ 500 ML IV SCH (06:19)
[2016-10-25 06:28] LABS: ALT (GPT) 49 U/L (12-78); ANION GAP 7 MEQ/L (5-15); AST (GOT) 39 U/L (15-37); BICARBONATE 27.2 MEQ/L (21.0-32.0); BLOOD UREA NITROGEN 14 MG/DL (7-18); CHLORIDE 103 MEQ/L (98-107); GLOMERULAR FILTRATION RATE 73 ML/MIN (>89); POTASSIUM 4.3 MEQ/L (3.5-5.1); SODIUM (NA) 137 MEQ/L (136-145)
[2016-10-25 06:30] LABS: ALKALINE PHOSPHATASE 70 U/L (45-117)
[2016-10-25] MEDS: INSULIN ASPART SUPPLEMENTAL SCALE SQ SCH ×4 (06:31→20:21)
[2016-10-25] MEDS ORDERED: THIAMINE INJ 100 MG in SODIUM CHLORIDE 0.9% INJ 100 ML IV SCH (06:45)
[2016-10-25 07:31] LABS: PLATELET ESTIMATE SMEAR LOW (NORMAL); PLATELET MORPHOLOGY NORMAL (NORMAL); SCAN/DIFF AUTO DIFF CONFIRMED
[2016-10-25] MEDS: SODIUM CHLORIDE 0.9% FLUSH 5 ML FLUSH FLUSH SCH ×2 (09:00→21:53)
[2016-10-25] MEDS: ASPIRIN EC 325 MG TABEC PO SCH (09:00)
[2016-10-25] MEDS: METOPROLOL TARTRATE 25 MG TAB PO SCH ×2 (09:10→20:21)
[2016-10-25] MEDS: DILTIAZEM HCL 60 MG TAB PO SCH ×4 (09:10→20:21)
[2016-10-25] MEDS: FOLIC ACID 1 MG TAB PO SCH (09:10)
[2016-10-25] MEDS: MULTIVITAMIN TAB PO SCH (09:11)
[2016-10-25] MEDS: DOCUSATE SODIUM 100 MG CAP PO SCH ×2 (09:11→20:21)
[2016-10-25] MEDS ORDERED: LOSARTAN 50 MG TAB PO ONE (09:30)
--- NOTE | 2016-10-25 09:40 | PD.CARD.PN ---
Subjective Subjective Remarks no complaints Objective Medications Current Medications Medications (Trade) Dose Ordered Sig/Bruno Route Start Time Stop Time Status Last Admin (NS Flush) 2 ml UNSCH PRN FLUSH 10/24/16 06:45 (NS Flush) 2 ml BID FLUSH 10/24/16 09:00 (Zofran Inj) 4 mg Q6H PRN IVP 10/24/16 06:45 (Dulcolax Supp) 10 mg DAILY PRN OR 10/24/16 06:45 (Tylenol) 650 mg Q6H PRN PO 10/24/16 06:45 (Morphine Inj) 2 mg Q3H PRN IV 10/24/16 06:45 10/24/16 16:25 Oxycodone HCl 5 mg 5 mg Q4H PRN PO 10/24/16 06:45 10/25/16 02:20 (Mvi-12 Inj/ Folvite Inj/NS 500 ml Inj) 510.2 ml @ 125 mls/hr Q24H IV 10/24/16 06:45 10/29/16 06:44 10/25/16 06:19 (Vitamin B1) 100 mg DAILY PO 10/27/16 09:00 (Flomax) 0.4 mg HS PO 10/24/16 21:00 10/24/16 21:17 (Colace) 100 mg BID PO 10/24/16 21:00 10/25/16 09:11 (Ativan) 1 mg Q4H PRN PO 10/24/16 14:00 10/25/16 02:15 (Ativan Inj) 1 mg Q4H PRN IV PUSH 10/24/16 14:00 10/25/16 06:19 (Ativan) 2 mg Q2H PRN PO 10/24/16 14:00 (Ativan Inj) 2 mg Q2H PRN IV PUSH 10/24/16 14:00 (Ativan Inj) 2 mg Q1H PRN IV PUSH 10/24/16 14:00 (Ativan Inj) 2 mg Q15M PRN IV PUSH 10/24/16 13:45 (Folate) 1 mg DAILY PO 10/24/16 15:00 10/25/16 09:10 Multivitamins 1 tab 1 tab DAILY PO 10/24/16 15:00 10/25/16 09:11 Thiamine HCl 100 mg/Sodium Chloride 101 ml @ 101 mls/hr DAILY IV 10/25/16 09:00 (Cardizem Inj/NS Inj) 125 ml @ 0 mls/hr TITRATE IV 10/24/16 16:00 (Cardizem) 60 mg QID PO 10/24/16 18:00 10/25/16 09:10 (Ecotrin Ec) 325 mg DAILY PO 10/25/16 09:00 (Vasotec Inj) 2.5 mg Q6H PRN IV PUSH 10/24/16 17:00 (Lovenox Inj) 40 mg Q24H SQ 10/24/16 17:00 (Lopressor) 25 mg Q12HR PO 10/24/16 18:00 10/25/16 09:10 Vital Signs / I&O Vital Signs Date Time Temp Pulse Resp B/P Pulse Ox O2 Delivery O2 Flow Rate FiO2 10/25/16 09:00 82 10/25/16 08:00 82 10/25/16 07:00 98.6 77 16 109/53 96 10/25/16 07:00 64 10/25/16 06:22 96 10/25/16 05:00 94 10/25/16 04:29 98.6 67 18 124/68 98 10/25/16 04:00 96 10/25/16 03:00 86 10/25/16 02:53 98.6 67 18 114/66 96 10/25/16 02:46 71 10/25/16 02:21 76 10/25/16 01:03 98.5 64 16 104/65 96 10/24/16 22:32 78 18 118/68 95 10/24/16 21:11 67 18 122/61 99 10/24/16 19:22 95 18 121/69 99 10/24/16 18:21 89 16 176/84 95 10/24/16 17:35 16 10/24/16 13:58 95 18 185/90 96 Room Air 10/24/16 11:41 94 21 I/O 10/24/16 10/24/16 10/24/16 10/25/16 10/25/16 10/25/16 07:00 15:00 23:00 07:00 15:00 23:00 Output Total 500 ml Balance -500 ml Output Urine Total 500 ml Physical Exam Alert Chest clear CV S1S2 irr irr with VVI pacing Laboratory Laboratory Tests Test 10/24/16 10/24/16 10/25/16 12:39 18:30 05:45 Lactic Acid Level 2.5 mmol/L 0.8 mmol/L Troponin I 0.02 NG/ML 0.02 NG/ML Thyroid Stimulating Hormone 1.930 uIU/ML 3rd Gen White Blood Count 4.5 TH/MM3 Red Blood Count 4.15 MIL/MM3 Hemoglobin 12.9 GM/DL Hematocrit 38.5 % Mean Corpuscular Volume 92.9 FL Mean Corpuscular Hemoglobin 31.1 PG Mean Corpuscular Hemoglobin 33.4 % Concent Red Cell Distribution Width 16.4 % Platelet Count 91 TH/MM3 Mean Platelet Volume 7.8 FL Neutrophils (%) (Auto) 51.7 % Lymphocytes (%) (Auto) 21.7 % Monocytes (%) (Auto) 19.7 % Eosinophils (%) (Auto) 5.9 % Basophils (%) (Auto) 1.0 % Neutrophils # (Auto) 2.3 TH/MM3 Lymphocytes # (Auto) 1.0 TH/MM3 Monocytes # (Auto) 0.9 TH/MM3 Eosinophils # (Auto) 0.3 TH/MM3 Basophils # (Auto) 0.0 TH/MM3 CBC Comment AUTO DIFF Differential Comment AUTO DIFF CONFIRMED Platelet Estimate LOW Platelet Morphology Comment NORMAL Sodium Level 137 MEQ/L Potassium Level 4.3 MEQ/L Chloride Level 103 MEQ/L Carbon Dioxide Level 27.2 MEQ/L Anion Gap 7 MEQ/L Blood Urea Nitrogen 14 MG/DL Creatinine 1.00 MG/DL Estimat Glomerular Filtration 73 ML/MIN Rate Random Glucose 124 MG/DL Calcium Level 8.1 MG/DL Total Bilirubin 1.0 MG/DL Aspartate Amino Transf 39 U/L (AST/SGOT) Alanine Aminotransferase 49 U/L (ALT/SGPT) Alkaline Phosphatase 70 U/L Total Protein 5.7 GM/DL Albumin 2.9 GM/DL Assessment and Plan Problem List: (1) Pacemaker Assessment and Plan: check pendin (2) Alcoholism /alcohol abuse (3) Chronic a-fib Assessment and Plan: Rate OK. Needs anticoagulation but too high risk with his heavy drinking Assessment and Plan I am signing off. Please call if questions Chucky Ramos MD Oct 25, 2016 09:40
[2016-10-25] MEDS: THIAMINE INJ 100 MG in SODIUM CHLORIDE 0.9% INJ 100 ML IV SCH (10:06)
--- NOTE | 2016-10-25 10:15 | HHI.PR ---
Subjective Remarks Follow up a-fib with RVR, alcohol withdrawal. Patient reporting chest pain in the center of his chest that radiates to his left arm. States that it is slightly worsened when he came in. Still having withdrawal symptoms. Objective Vitals Vital Signs Date Time Temp Pulse Resp B/P Pulse Ox O2 Delivery O2 Flow Rate FiO2 10/25/16 10:00 88 10/25/16 09:00 82 10/25/16 08:00 82 10/25/16 07:00 98.6 77 16 109/53 96 10/25/16 07:00 64 10/25/16 06:22 96 10/25/16 05:00 94 10/25/16 04:29 98.6 67 18 124/68 98 10/25/16 04:00 96 10/25/16 03:00 86 10/25/16 02:53 98.6 67 18 114/66 96 10/25/16 02:46 71 10/25/16 02:21 76 10/25/16 01:03 98.5 64 16 104/65 96 10/24/16 22:32 78 18 118/68 95 10/24/16 21:11 67 18 122/61 99 10/24/16 19:22 95 18 121/69 99 10/24/16 18:21 89 16 176/84 95 10/24/16 17:35 16 10/24/16 13:58 95 18 185/90 96 Room Air 10/24/16 11:41 94 21 I/O 10/24/16 10/24/16 10/24/16 10/25/16 10/25/16 10/25/16 07:00 15:00 23:00 07:00 15:00 23:00 Output Total 500 ml Balance -500 ml Output Urine Total 500 ml Result Diagram: 10/25/16 0545 10/25/[address] Angiography 10/24/16613 Signed Impressions: Service Date/Time: Monday, October 24, 2016 06:30 - CONCLUSION: 1. No evidence for pulmonary emboli. 2. Moderate/severe emphysema without infiltrate. 3. Nonspecific 1.9 cm low-density in the left lobe of the liver. Nonemergent abdominal sonogram maybe warranted. 4. Left-sided pacemaker. Joe Suero MD Chest X-Ray 10/24/16512 Signed Impressions: Service Date/Time: Monday, October 24, 2016 05:21 - CONCLUSION: No acute disease. Joe Suero MD Objective Remarks General: No acute distress. Heart: Regular rate and rhythm. No murmur. Lungs: Scattered wheeze. Breathing is nonlabored. Abdomen: Soft, nontender, nondistended. Extremities: No lower extremity edema. Psych: Alert and oriented. Procedures None Urinary Catheter: No Vascular Central Line Catheter: No A/P Problem List: (1) Atrial fibrillation with RVR ICD Code: I48.91 Status: Acute (2) Chronic a-fib ICD Code: I48.2 Status: Chronic (3) Lactic acidosis ICD Code: E87.2 Status: Resolved (4) Alcoholism /alcohol abuse ICD Code: F10.20 Status: Chronic (5) History of coronary artery disease ICD Code: Z86.79 Status: Chronic (6) Chest pain, rule out acute myocardial infarction ICD Code: R07.9 Status: Resolved (7) Hypertension ICD Code: I10 Status: Chronic (8) Diabetes mellitus ICD Code: E11.9 Status: Chronic (9) COPD (chronic obstructive pulmonary disease) ICD Code: J44.9 Status: Chronic Assessment and Plan 1. Atrial fibrillation with RVR: Patient has chronic atrial fibrillation. Had been on Coumadin previously, but this was discontinued likely secondary to history of alcohol abuse and frequent falls. Appreciate cardiology recommendations. Rate control improved. Off Cardizem drip. Continue oral Cardizem. Patient continues to have frequent PVCs. Continue aspirin, Lovenox ( patient is refusing these medications). Cardiology has signed off. 2. Chest pain: Likely secondary to A. fib. Serial cardiac enzymes are negative. Appreciate cardiology recommendations. 3. Lactic acidosis: Likely secondary to A. fib with RVR, alcohol withdrawal. Resolved. Continue IV fluids. 4. Alcohol abuse: Patient drinks a pint of vodka daily. Continue CIWA protocol. Patient was counseled regarding cessation of alcohol use. Withdrawal precautions. Continue thiamine, folate acid, multivitamin. 5. Liver lesion: Nonspecific 1.9 cm lesion in the left lobe of the liver seen on CT. Radiology recommends nonemergent liver ultrasound. 6. Thrombocytopenia: Likely secondary to alcohol abuse. No evidence of bleeding at this time. 7. Hypertension: Likely exacerbated by alcohol withdrawal, pain. 8. COPD: Patient continues to smoke one half pack per day. Was counseled to quit smoking. Continue bronchodilators, oxygen. 9. Diabetes mellitus: Diet-controlled. Monitor Accu-Cheks and cover with sliding scale insulin. 10. DVT prophylaxis: Lovenox. Abram German MD Oct 25, 2016 10:15
[2016-10-25] MEDS: ENOXAPARIN SODIUM 40 MG/0.4 ML SYRINGE SQ SCH (16:03)
[2016-10-25] MEDS: TAMSULOSIN HCL 0.4 MG CAP PO SCH (20:22)
[2016-10-25] MEDS ORDERED: HALOPERIDOL LACTATE 5 MG/ML AMP IV PUSH ONE ×2 (22:00→23:30)
[2016-10-25] MEDS ORDERED: DEXMEDETOMIDINE INJ 50 ML IV SCH (23:30)
[2016-10-25] MEDS ORDERED: LORazepam 2 MG/ML VIAL IV PUSH ONE (23:30)
[2016-10-26] VITALS (12 sets, daily range): BP systolic 117–181; BP diastolic 70–91; PULSE 60–87; RESP 13–24; TEMP 95.6–98; O2SAT 93–100
[2016-10-26] MEDS: LORazepam 2 MG/ML VIAL IV PUSH PRN (00:30)
[2016-10-26] MEDS ORDERED: DEXMEDETOMIDINE IV SCH (01:00)
[2016-10-26] MEDS ORDERED: CHLORHEXIDINE GLUCONATE 2 % 1 PACK (2 CLOTHS)(extra cloths) TOP PRN (01:30)
--- NOTE | 2016-10-26 01:47 | HHI.PR ---
Addendum to Inpatient Note Addendum Reason: Additional Documentation Additional Information Was called by patient's nurse at around 2200 during the night that patient's was getting more and more agitated, with tremors, not oriented to place and time , diaphoretic. Chart reviewed. Patient is an alcoholic who drinks about a gallon a day of vodka. He is on CIWA protocol. Reviewed the amount of Ativan that he has received thus far. Therefore I have advised patient's nurse to continue with sedation. Have also ordered for Haldol 4 mg IV to be given together with Ativan at that time. Over the next few hours, patient was getting more and more agitated and we had given him a total of 12 mg Ativan IV, with 8 mg IV Haldol between 2200 to now. I have also ordered for stat transfer the patient to ICU for close monitoring and to start Precedex drip. Came to see patient at the bedside in ICU. Patient is sedated also would easily wake up and move around and try to get out of bed. He is diaphoretic on exam. Heart rate is regular, rate of around 64. No murmur appreciated. Abdomen is soft and nontender. De La Cruz catheter was in place. Lower extremities do not reveal any calf asymmetry or edema. No gross focal deficits noted. Moving all 4 limbs. Blood pressure around 140/80. Respiratory rate around 20. Saturating 94% on 3 L nasal cannular. Precedex drip was just started now. Impression: Delirium tremens A. fib with RVRresolved. Likely due to alcohol withdrawal. Report of PVCs/PACs per nursing staff on telemetry monitoring and CIC. History of hypertension History of diabetes History of CAD History of COPD Status post pacemaker placement Plan: Monitor patient in ICU. Continue Precedex drip and titrate. Oxygen supplementation 2 L nasal cannula. Watch for CO2 retention. Discontinue Cardizem drip since rate is controlled with sedation for withdrawal. We'll check electrolytes stat due to nursing report of cardiac dysrhythmias. However question whether those were pacemaker spikes that are misinterpreted as V. tach. Also would check stat CBC, hemoglobin hematocrit. Noted drop in hemoglobin today. Likely from hemoconcentration which was improving with IV fluids. Latest echo which was done October 24, 2016reviewed. No significant diastolic dysfunction. LVEF preserved. Critical care time 30 minutes Dennis Perla MD Oct 26, 2016 01:47
[2016-10-26 02:20] LABS: AUTOMATED NEUTROPHIL # 1.6 TH/MM3 (1.8-7.7); BASOPHIL % 0.7 % (0.0-2.0); EOSINOPHIL # 0.1 TH/MM3 (0-0.4); HEMATOCRIT 37.7 % (39.0-51.0); LYMPH % 28.9 % (9.0-44.0); LYMPHOCYTE # 0.9 TH/MM3 (1.0-4.8); MEAN CELL VOLUME 92.3 FL (80.0-100.0); MEAN CORPUSCULAR HGB CONC 33.6 % (32.0-36.0); MONO % 16.9 % (0.0-8.0); NEUT % 50.5 % (16.0-70.0); PLATELET COUNT 79 TH/MM3 (150-450); RED BLOOD COUNT 4.08 MIL/MM3 (4.50-5.90); RED CELL DISTRIBUTION WIDTH 16.1 % (11.6-17.2); WHITE BLOOD COUNT 3.1 TH/MM3 (4.0-11.0)
[2016-10-26 02:22] LABS: HEMO FLAGS AUTO DIFF
[2016-10-26 02:27] LABS: ALKALINE PHOSPHATASE 72 U/L (45-117); ALT (GPT) 48 U/L (12-78); ANION GAP 6 MEQ/L (5-15); AST (GOT) 38 U/L (15-37); BICARBONATE 28.3 MEQ/L (21.0-32.0); BLOOD UREA NITROGEN 14 MG/DL (7-18); CHLORIDE 102 MEQ/L (98-107); GLOMERULAR FILTRATION RATE 74 ML/MIN (>89); MAGNESIUM 1.9 MG/DL (1.5-2.5); POTASSIUM 4.1 MEQ/L (3.5-5.1); SODIUM (NA) 136 MEQ/L (136-145); TOTAL BILIRUBIN ADULT 0.6 MG/DL (0.2-1.0)
[2016-10-26 02:52] LABS: PLATELET MORPHOLOGY NORMAL (NORMAL); SCAN/DIFF AUTO DIFF CONFIRMED
[2016-10-26 02:53] LABS: PLATELET ESTIMATE SMEAR LOW (NORMAL)
[2016-10-26] MEDS: CHLORHEXIDINE GLUCONATE 2 % 1 PACK (2 CLOTHS)(taper/protocol) TOP SCH (03:01)
[2016-10-26] MEDS: MULTIVITAMIN INJ 10 ML, FOLIC ACID INJ 1 MG in SODIUM CHLORID 0.9% 500 ML INJ 500 ML IV SCH (05:46)
[2016-10-26] MEDS: INSULIN ASPART SUPPLEMENTAL SCALE SQ SCH ×4 (06:06→20:03)
--- NOTE | 2016-10-26 09:21 | HHI.PR ---
Subjective Remarks Follow up ETOH withdrawal, a-fib. Patient transferred to ICU. Now on Precedex drip. Sedated. Does wake up somewhat and states that he does not feel good. No specific complaints. Objective Vitals Vital Signs Date Time Temp Pulse Resp B/P Pulse Ox O2 Delivery O2 Flow Rate FiO2 10/26/16 08:51 94 10/26/16 06:00 62 10/26/16 04:00 97.4 63 17 134/79 96 10/26/16 04:00 63 10/26/16 04:00 96 Nasal Cannula 2.00 10/26/16 02:00 97.0 60 17 117/70 93 10/26/16 02:00 63 10/26/16 01:28 98.0 87 20 142/86 98 10/26/16 01:15 96 Nasal Cannula 2.00 10/25/16 22:44 95 131/69 10/25/16 19:49 98.0 87 16 158/83 97 10/25/16 18:00 94 10/25/16 17:00 70 10/25/16 16:00 64 10/25/16 15:00 97.8 73 18 116/63 98 10/25/16 15:00 67 10/25/16 14:00 62 10/25/16 13:00 67 10/25/16 12:00 80 10/25/16 11:00 75 10/25/16 11:00 98.4 92 16 139/84 93 10/25/16 10:00 88 I/O 10/25/16 10/25/16 10/25/16 10/26/16 10/26/16 10/26/16 07:00 15:00 23:00 07:00 15:00 23:00 Intake Total 2420 ml 50 ml Output Total 500 ml 700 ml 250 ml Balance -500 ml 1720 ml -200 ml Intake Oral 1920 ml IV Total 500 ml 50 ml Output Urine Total 500 ml 700 ml 250 ml # Voids 1 # Bowel Movements 1 Result Diagram: 10/26/16 0205 10/26/16 [address] Angiography 10/24/16613 Signed Impressions: Service Date/Time: Monday, October 24, 2016 06:30 - CONCLUSION: 1. No evidence for pulmonary emboli. 2. Moderate/severe emphysema without infiltrate. 3. Nonspecific 1.9 cm low-density in the left lobe of the liver. Nonemergent abdominal sonogram maybe warranted. 4. Left-sided pacemaker. Joe Suero MD Chest X-Ray 10/24/16 0513 Signed Impressions: Service Date/Time: Monday, October 24, 2016 05:21 - CONCLUSION: No acute disease. Joe Suero MD Objective Remarks General: No acute distress. Heart: Irregular rhythm. No murmur. Lungs: Scattered wheeze. Breathing is nonlabored. Abdomen: Soft, nontender, nondistended. Extremities: No lower extremity edema. Psych: Sedated. Procedures None Urinary Catheter: No Vascular Central Line Catheter: No A/P Problem List: (1) Atrial fibrillation with RVR ICD Code: I48.91 Status: Acute (2) Chronic a-fib ICD Code: I48.2 Status: Chronic (3) Lactic acidosis ICD Code: E87.2 Status: Resolved (4) Alcoholism /alcohol abuse ICD Code: F10.20 Status: Chronic (5) History of coronary artery disease ICD Code: Z86.79 Status: Chronic (6) Chest pain, rule out acute myocardial infarction ICD Code: R07.9 Status: Resolved (7) Hypertension ICD Code: I10 Status: Chronic (8) Diabetes mellitus ICD Code: E11.9 Status: Chronic (9) COPD (chronic obstructive pulmonary disease) ICD Code: J44.9 Status: Chronic (10) Alcohol withdrawal ICD Code: F10.239 Status: Acute Assessment and Plan 1. Atrial fibrillation with RVR: Patient has chronic atrial fibrillation. Had been on Coumadin previously, but this was discontinued likely secondary to history of alcohol abuse and frequent falls. Appreciate cardiology recommendations. Rate control improved. Off Cardizem drip. Continue oral Cardizem. Patient continues to have frequent PVCs. Continue aspirin, Lovenox ( patient is refusing these medications). Cardiology has signed off. 2. Chest pain: Likely secondary to A. fib. Serial cardiac enzymes are negative. Appreciate cardiology recommendations. 3. Lactic acidosis: Likely secondary to A. fib with RVR, alcohol withdrawal. Resolved. Continue IV fluids. 4. Alcohol abuse, withdrawal: Patient drinks a pint of vodka daily. Continue CIWA protocol. Patient has been counseled regarding cessation of alcohol use. Withdrawal precautions. Continue thiamine, folate acid, multivitamin. Now in ICU on Precedex drip. 5. Liver lesion: Nonspecific 1.9 cm lesion in the left lobe of the liver seen on CT. Radiology recommends nonemergent liver ultrasound. 6. Thrombocytopenia: Likely secondary to alcohol abuse. No evidence of bleeding at this time. 7. Hypertension: Likely exacerbated by alcohol withdrawal, pain. 8. COPD: Patient continues to smoke one half pack per day. Was counseled to quit smoking. Continue bronchodilators, oxygen. 9. Diabetes mellitus: Diet-controlled. Monitor Accu-Cheks and cover with sliding scale insulin. 10. DVT prophylaxis: Lovenox. Abram German MD Oct 26, 2016 09:21
[2016-10-26] MEDS: DOCUSATE SODIUM 100 MG CAP PO SCH ×2 (09:48→19:21)
[2016-10-26] MEDS: DILTIAZEM HCL 60 MG TAB PO SCH ×4 (09:48→20:05)
[2016-10-26] MEDS: FOLIC ACID 1 MG TAB PO SCH (09:48)
[2016-10-26] MEDS: METOPROLOL TARTRATE 25 MG TAB PO SCH ×2 (09:48→20:05)
[2016-10-26] MEDS: MULTIVITAMIN TAB PO SCH (09:48)
[2016-10-26] MEDS: THIAMINE INJ 100 MG in SODIUM CHLORIDE 0.9% INJ 100 ML IV SCH (09:48)
[2016-10-26] MEDS: ASPIRIN EC 325 MG TABEC PO SCH (09:48)
[2016-10-26] MEDS: SODIUM CHLORIDE 0.9% FLUSH 5 ML FLUSH FLUSH SCH ×2 (09:49→20:07)
[2016-10-26] MEDS: ENALAPRILAT 2.5 MG/2 ML VIAL IV PUSH PRN (17:15)
[2016-10-26 17:59] LABS: HEPARIN AB OD 0.094 O.D. (0.000-0.300); HEPARIN INDUCED PLATELET AB NEGATIVE (NEGATIVE)
[2016-10-26] MEDS: TAMSULOSIN HCL 0.4 MG CAP PO SCH (20:05)
[2016-10-26] MEDS: DEXMEDETOMIDINE INJ 1,000 MCG in SODIUM CHLOR 0.9% 250 ML INJ 240 ML IV SCH (20:05)
[2016-10-27] VITALS (11 sets, daily range): BP systolic 106–186; BP diastolic 61–99; PULSE 63–68; RESP 20; TEMP 97.5–98.8; O2SAT 97–100
[2016-10-27] MEDS: ENALAPRILAT 2.5 MG/2 ML VIAL IV PUSH PRN (00:31)
[2016-10-27] MEDS: CHLORHEXIDINE GLUCONATE 2 % 1 PACK (2 CLOTHS)(taper/protocol) TOP SCH (03:12)
[2016-10-27] MEDS: LORazepam 2 MG/ML VIAL IV PUSH PRN ×2 (03:29→04:47)
[2016-10-27] MEDS ORDERED: HALOPERIDOL LACTATE 5 MG/ML AMP IV PUSH ONE (03:45)
[2016-10-27] MEDS ORDERED: cloNIDine HCL 0.1 MG TAB PO ONE (03:45)
[2016-10-27] MEDS: MULTIVITAMIN INJ 10 ML, FOLIC ACID INJ 1 MG in SODIUM CHLORID 0.9% 500 ML INJ 500 ML IV SCH (05:09)
[2016-10-27] MEDS: INSULIN ASPART SUPPLEMENTAL SCALE SQ SCH ×4 (05:09→20:15)
[2016-10-27] MEDS: DEXMEDETOMIDINE INJ 1,000 MCG in SODIUM CHLOR 0.9% 250 ML INJ 240 ML IV SCH ×2 (05:09→17:32)
[2016-10-27] MEDS: THIAMINE HCL 100 MG TAB PO SCH (08:50)
[2016-10-27] MEDS: DOCUSATE SODIUM 100 MG CAP PO SCH ×2 (08:50→20:15)
[2016-10-27] MEDS: METOPROLOL TARTRATE 25 MG TAB PO SCH ×2 (08:50→20:15)
[2016-10-27] MEDS: ASPIRIN EC 325 MG TABEC PO SCH (08:50)
[2016-10-27] MEDS: DILTIAZEM HCL 60 MG TAB PO SCH ×4 (08:50→20:15)
[2016-10-27] MEDS: FOLIC ACID 1 MG TAB PO SCH (08:50)
[2016-10-27] MEDS: MULTIVITAMIN TAB PO SCH (08:50)
[2016-10-27] MEDS: THIAMINE INJ 100 MG in SODIUM CHLORIDE 0.9% INJ 100 ML IV SCH (08:50)
[2016-10-27] MEDS: SODIUM CHLORIDE 0.9% FLUSH 5 ML FLUSH FLUSH SCH ×2 (08:51→20:14)
--- NOTE | 2016-10-27 09:22 | HHI.PR ---
Subjective Remarks Follow up a-fib, EtOH withdrawal. The patient is lethargic/sedated. States that he does not feel well today. Not able to voice specific complaints as he falls asleep frequently. Objective Vitals Vital Signs Date Time Temp Pulse Resp B/P Pulse Ox O2 Delivery O2 Flow Rate FiO2 10/27/16 06:00 63 10/27/16 04:00 63 10/27/16 04:00 100 Nasal Cannula 3.00 10/27/16 04:00 97.5 63 20 186/99 100 10/27/16 02:00 66 10/27/16 00:00 97.8 63 20 179/96 100 10/27/16 00:00 100 Room Air 10/27/16 00:00 63 10/26/16 22:00 62 10/26/16 20:00 63 10/26/16 20:00 97.3 63 19 181/91 100 10/26/16 20:00 100 Room Air 10/26/16 19:20 98 21 10/26/16 16:00 Room Air 10/26/16 16:00 95.6 68 24 181/78 99 10/26/16 12:00 Room Air 10/26/16 12:00 97.9 61 23 174/85 94 I/O 10/26/16 10/26/16 10/26/16 10/27/16 10/27/16 10/27/16 07:00 15:00 23:00 07:00 15:00 23:00 Intake Total 50 ml 960 ml 167 ml 283 ml Output Total 250 ml 350 ml Balance -200 ml 960 ml 167 ml -67 ml Intake Oral 240 ml IV Total 50 ml 720 ml 167 ml 283 ml Output Urine Total 250 ml 350 ml # Voids 1 4 3 Result Diagram: 10/26/16 0205 10/26/16 [address] Angiography 10/24/16613 Signed Impressions: Service Date/Time: Monday, October 24, 2016 06:30 - CONCLUSION: 1. No evidence for pulmonary emboli. 2. Moderate/severe emphysema without infiltrate. 3. Nonspecific 1.9 cm low-density in the left lobe of the liver. Nonemergent abdominal sonogram maybe warranted. 4. Left-sided pacemaker. Joe Suero MD Chest X-Ray 10/24/16 0523 Signed Impressions: Service Date/Time: Monday, October 24, 2016 05:21 - CONCLUSION: No acute disease. Joe Suero MD Objective Remarks General: No acute distress. Heart: Irregular rhythm. No murmur. Lungs: Scattered wheeze. Breathing is nonlabored. Abdomen: Soft, nontender, nondistended. Extremities: No lower extremity edema. Psych: Sedated/lethargic. Procedures None Urinary Catheter: No Vascular Central Line Catheter: No A/P Problem List: (1) Atrial fibrillation with RVR ICD Code: I48.91 Status: Acute (2) Chronic a-fib ICD Code: I48.2 Status: Chronic (3) Lactic acidosis ICD Code: E87.2 Status: Resolved (4) Alcoholism /alcohol abuse ICD Code: F10.20 Status: Chronic (5) History of coronary artery disease ICD Code: Z86.79 Status: Chronic (6) Chest pain, rule out acute myocardial infarction ICD Code: R07.9 Status: Resolved (7) Hypertension ICD Code: I10 Status: Chronic (8) Diabetes mellitus ICD Code: E11.9 Status: Chronic (9) COPD (chronic obstructive pulmonary disease) ICD Code: J44.9 Status: Chronic (10) Alcohol withdrawal ICD Code: F10.239 Status: Acute Assessment and Plan 1. Atrial fibrillation with RVR: Patient has chronic atrial fibrillation. Had been on Coumadin previously, but this was discontinued likely secondary to history of alcohol abuse and frequent falls. Appreciate cardiology recommendations. Rate control improved. Off Cardizem drip. Continue oral Cardizem. Patient continues to have frequent PVCs. Continue aspirin, Lovenox ( patient is refusing these medications). Cardiology has signed off. 2. Chest pain: Likely secondary to A. fib. Serial cardiac enzymes are negative. Appreciate cardiology recommendations. 3. Lactic acidosis: Likely secondary to A. fib with RVR, alcohol withdrawal. Resolved. Continue IV fluids. 4. Alcohol abuse, withdrawal: Patient drinks a pint of vodka daily. Continue CIWA protocol. Patient has been counseled regarding cessation of alcohol use. Withdrawal precautions. Continue thiamine, folate acid, multivitamin. Now in ICU on Precedex drip. Add clonidine. 5. Liver lesion: Nonspecific 1.9 cm lesion in the left lobe of the liver seen on CT. Radiology recommends nonemergent liver ultrasound. 6. Thrombocytopenia: Likely secondary to alcohol abuse. No evidence of bleeding at this time. 7. Hypertension: Likely exacerbated by alcohol withdrawal, pain. Clonidine, diltiazem. Vasotec as needed. 8. COPD: Patient continues to smoke one half pack per day. Was counseled to quit smoking. Continue bronchodilators, oxygen. 9. Diabetes mellitus: Diet-controlled. Monitor Accu-Cheks and cover with sliding scale insulin. 10. DVT prophylaxis: Lovenox. Abram German MD Oct 27, 2016 09:22
[2016-10-27] MEDS: cloNIDine HCL 0.1 MG TAB PO SCH ×2 (12:23→20:15)
[2016-10-27] MEDS: TAMSULOSIN HCL 0.4 MG CAP PO SCH (20:15)
[2016-10-28] VITALS (12 sets, daily range): BP systolic 98–122; BP diastolic 53–74; PULSE 63–66; RESP 18–20; TEMP 98.2–98.8; O2SAT 94–100
[2016-10-28] MEDS: CHLORHEXIDINE GLUCONATE 2 % 1 PACK (2 CLOTHS)(taper/protocol) TOP SCH (04:00)
[2016-10-28] MEDS: cloNIDine HCL 0.1 MG TAB PO SCH ×3 (05:24→19:58)
[2016-10-28] MEDS: INSULIN ASPART SUPPLEMENTAL SCALE SQ SCH ×3 (06:11→19:11)
[2016-10-28 06:13] LABS: AUTOMATED NEUTROPHIL # 6.3 TH/MM3 (1.8-7.7); BASOPHIL % 0.4 % (0.0-2.0); EOSINOPHIL # 0.3 TH/MM3 (0-0.4); EOSINOPHIL % 2.8 % (0.0-4.0); HEMATOCRIT 43.5 % (39.0-51.0); LYMPH % 17.7 % (9.0-44.0); LYMPHOCYTE # 1.6 TH/MM3 (1.0-4.8); MEAN CELL VOLUME 92.2 FL (80.0-100.0); MEAN CORPUSCULAR HGB CONC 33.6 % (32.0-36.0); MONO % 11.8 % (0.0-8.0); NEUT % 67.3 % (16.0-70.0); PLATELET COUNT 97 TH/MM3 (150-450); RED BLOOD COUNT 4.71 MIL/MM3 (4.50-5.90); RED CELL DISTRIBUTION WIDTH 16.5 % (11.6-17.2); WHITE BLOOD COUNT 9.3 TH/MM3 (4.0-11.0)
[2016-10-28 06:32] LABS: HEMO FLAGS AUTO DIFF
[2016-10-28 06:36] LABS: BICARBONATE 24.3 MEQ/L (21.0-32.0); POTASSIUM 3.7 MEQ/L (3.5-5.1)
[2016-10-28 07:57] LABS: PLATELET ESTIMATE SMEAR LOW (NORMAL); PLATELET MORPHOLOGY NORMAL (NORMAL); SCAN/DIFF AUTO DIFF CONFIRMED
[2016-10-28] MEDS: METOPROLOL TARTRATE 25 MG TAB PO SCH ×2 (09:00→19:58)
[2016-10-28] MEDS: SODIUM CHLORIDE 0.9% FLUSH 5 ML FLUSH FLUSH SCH ×2 (09:00→19:59)
[2016-10-28] MEDS: MULTIVITAMIN TAB PO SCH (09:00)
--- NOTE | 2016-10-28 09:10 | HHI.PR ---
Subjective Remarks Follow up EtOH withdrawal, a-fib. Patient states that he feels much better today. Per nursing, no events overnight. Objective Vitals Vital Signs Date Time Temp Pulse Resp B/P Pulse Ox O2 Delivery O2 Flow Rate FiO2 10/28/16 08:00 64 10/28/16 06:00 66 10/28/16 04:00 98.2 66 18 122/74 100 10/28/16 04:00 Room Air 10/28/16 04:00 65 10/28/16 02:00 64 10/28/16 00:00 65 10/28/16 00:00 98.6 65 20 116/66 100 10/28/16 00:00 Room Air 10/27/16 22:00 64 10/27/16 21:22 97 10/27/16 20:00 98.4 64 20 106/61 100 10/27/16 20:00 Room Air 10/27/16 20:00 64 10/27/16 16:00 98.3 68 20 116/68 10/27/16 16:00 Room Air 10/27/16 12:00 Room Air 10/27/16 12:00 98.7 64 20 154/90 99 I/O 10/27/16 10/27/16 10/27/16 10/28/16 10/28/16 10/28/16 07:00 15:00 23:00 07:00 15:00 23:00 Intake Total 283 ml 1400 ml 428 ml 549 ml Output Total 350 ml 750 ml Balance -67 ml 1400 ml 428 ml -201 ml Intake Oral 600 ml 240 ml 450 ml IV Total 283 ml 800 ml 188 ml 99 ml Output Urine Total 350 ml 750 ml # Voids 2 2 Result Diagram: 10/28/16 0457 10/28/[address] Angiography 10/24/16613 Signed Impressions: Service Date/Time: Monday, October 24, 2016 06:30 - CONCLUSION: 1. No evidence for pulmonary emboli. 2. Moderate/severe emphysema without infiltrate. 3. Nonspecific 1.9 cm low-density in the left lobe of the liver. Nonemergent abdominal sonogram maybe warranted. 4. Left-sided pacemaker. Joe Suero MD Chest X-Ray 10/24/16512 Signed Impressions: Service Date/Time: Monday, October 24, 2016 05:21 - CONCLUSION: No acute disease. Joe Suero MD Objective Remarks General: No acute distress. Heart: Irregular rhythm. No murmur. Lungs: Scattered wheeze. Breathing is nonlabored. Abdomen: Soft, nontender, nondistended. Extremities: No lower extremity edema. SCDs. Psych: Alert, answers questions appropriately. Procedures None Urinary Catheter: No Vascular Central Line Catheter: No A/P Problem List: (1) Atrial fibrillation with RVR ICD Code: I48.91 Status: Acute (2) Chronic a-fib ICD Code: I48.2 Status: Chronic (3) Lactic acidosis ICD Code: E87.2 Status: Resolved (4) Alcoholism /alcohol abuse ICD Code: F10.20 Status: Chronic (5) History of coronary artery disease ICD Code: Z86.79 Status: Chronic (6) Chest pain, rule out acute myocardial infarction ICD Code: R07.9 Status: Resolved (7) Hypertension ICD Code: I10 Status: Chronic (8) Diabetes mellitus ICD Code: E11.9 Status: Chronic (9) COPD (chronic obstructive pulmonary disease) ICD Code: J44.9 Status: Chronic (10) Alcohol withdrawal ICD Code: F10.239 Status: Acute Assessment and Plan 1. Atrial fibrillation with RVR: Patient has chronic atrial fibrillation. Had been on Coumadin previously, but this was discontinued likely secondary to history of alcohol abuse and frequent falls. Appreciate cardiology recommendations. Rate controlled. Continue oral Cardizem. Patient continues to have frequent PVCs. Continue aspirin. Lovenox on hold. Cardiology has signed off. 2. Chest pain: Likely secondary to A. fib. Serial cardiac enzymes are negative. Appreciate cardiology recommendations. 3. Lactic acidosis: Likely secondary to A. fib with RVR, alcohol withdrawal. Resolved. Continue IV fluids. 4. Alcohol abuse, withdrawal: Improving. Patient drinks a pint of vodka daily. Continue CIWA protocol. Patient has been counseled regarding cessation of alcohol use. Withdrawal precautions. Continue thiamine, folate acid, multivitamin. Continue clonidine. Wean off Precedex drip as tolerated. 5. Liver lesion: Nonspecific 1.9 cm lesion in the left lobe of the liver seen on CT. Radiology recommends nonemergent liver ultrasound. 6. Thrombocytopenia: Likely secondary to alcohol abuse. No evidence of bleeding at this time. 7. Hypertension: Likely exacerbated by alcohol withdrawal, pain. Clonidine, diltiazem. Vasotec as needed. 8. COPD: Patient continues to smoke one half pack per day. Was counseled to quit smoking. Continue bronchodilators, oxygen. 9. Diabetes mellitus: Diet-controlled. Monitor Accu-Cheks and cover with sliding scale insulin. 10. DVT prophylaxis: Lovenox. Abram German MD Oct 28, 2016 09:09
[2016-10-28] MEDS: ASPIRIN EC 325 MG TABEC PO SCH (09:11)
[2016-10-28] MEDS: DILTIAZEM HCL 60 MG TAB PO SCH ×3 (09:11→19:58)
[2016-10-28] MEDS: DOCUSATE SODIUM 100 MG CAP PO SCH ×2 (09:11→19:58)
[2016-10-28] MEDS: FOLIC ACID 1 MG TAB PO SCH (09:12)
[2016-10-28] MEDS: THIAMINE HCL 100 MG TAB PO SCH (09:12)
[2016-10-28] MEDS: DEXMEDETOMIDINE INJ 1,000 MCG in SODIUM CHLOR 0.9% 250 ML INJ 240 ML IV SCH (14:41)
[2016-10-28] MEDS: TAMSULOSIN HCL 0.4 MG CAP PO SCH (19:58)
[2016-10-29] VITALS (10 sets, daily range): BP systolic 93–135; BP diastolic 60–71; PULSE 65–86; RESP 15–18; TEMP 97.3–98.3; O2SAT 94–98
[2016-10-29] MEDS: CHLORHEXIDINE GLUCONATE 2 % 1 PACK (2 CLOTHS)(taper/protocol) TOP SCH (03:25)
[2016-10-29] MEDS: cloNIDine HCL 0.1 MG TAB PO SCH (05:20)
[2016-10-29] MEDS: INSULIN ASPART SUPPLEMENTAL SCALE SQ SCH ×4 (05:20→20:30)
[2016-10-29] MEDS: DOCUSATE SODIUM 100 MG CAP PO SCH ×2 (08:40→20:28)
[2016-10-29] MEDS: THIAMINE HCL 100 MG TAB PO SCH (08:40)
[2016-10-29] MEDS: ASPIRIN EC 325 MG TABEC PO SCH (08:40)
[2016-10-29] MEDS: FOLIC ACID 1 MG TAB PO SCH (08:40)
[2016-10-29] MEDS: MULTIVITAMIN TAB PO SCH (08:40)
[2016-10-29] MEDS: METOPROLOL TARTRATE 25 MG TAB PO SCH ×2 (08:40→20:28)
[2016-10-29] MEDS: DILTIAZEM HCL 60 MG TAB PO SCH ×4 (08:40→20:28)
[2016-10-29] MEDS: SODIUM CHLORIDE 0.9% FLUSH 5 ML FLUSH FLUSH SCH ×2 (08:41→20:28)
--- NOTE | 2016-10-29 09:30 | HHI.PR ---
Subjective Remarks Follow up EtOH withdrawal, a-fib. The patient states that he feels much better today. Denies pain, dyspnea, nausea, vomiting. States that his legs feel very weak. Objective Vitals Vital Signs Date Time Temp Pulse Resp B/P Pulse Ox O2 Delivery O2 Flow Rate FiO2 10/29/16 08:00 Room Air 10/29/16 08:00 98.0 70 16 125/68 97 10/29/16 08:00 65 10/29/16 07:56 94 21 10/29/16 06:00 74 10/29/16 04:00 98.3 68 15 130/69 98 10/29/16 04:00 68 10/29/16 04:00 Room Air 10/29/16 02:00 69 10/29/16 00:00 Room Air 10/29/16 00:00 98.0 65 16 125/60 98 10/29/16 00:00 65 10/28/16 22:00 64 10/28/16 20:00 65 10/28/16 20:00 98.4 65 20 114/67 100 10/28/16 20:00 Room Air 10/28/16 16:00 Room Air 10/28/16 16:00 98.8 66 18 117/68 100 10/28/16 16:00 64 10/28/16 14:00 64 10/28/16 12:00 98.2 63 18 103/57 100 10/28/16 12:00 Room Air 10/28/16 12:00 64 10/28/16 10:00 64 10/28/16 09:45 94 21 I/O 10/28/16 10/28/16 10/28/16 10/29/16 10/29/16 10/29/16 07:00 15:00 23:00 07:00 15:00 23:00 Intake Total 549 ml 506 ml 775 ml 749 ml Output Total 750 ml 850 ml 800 ml 650 ml Balance -201 ml -344 ml -25 ml 99 ml Intake Oral 450 ml 380 ml 600 ml 650 ml IV Total 99 ml 126 ml 175 ml 99 ml Output Urine Total 750 ml 850 ml 800 ml 650 ml Result Diagram: 10/28/16 0457 10/28/16 [address] Angiography 10/24/16613 Signed Impressions: Service Date/Time: Monday, October 24, 2016 06:30 - CONCLUSION: 1. No evidence for pulmonary emboli. 2. Moderate/severe emphysema without infiltrate. 3. Nonspecific 1.9 cm low-density in the left lobe of the liver. Nonemergent abdominal sonogram maybe warranted. 4. Left-sided pacemaker. Joe Suero MD Chest X-Ray 10/24/16 0513 Signed Impressions: Service Date/Time: Monday, October 24, 2016 05:21 - CONCLUSION: No acute disease. Joe Suero MD Objective Remarks General: No acute distress. Heart: Irregular rhythm. No murmur. Lungs: Scattered wheeze. Breathing is nonlabored. Abdomen: Soft, nontender, nondistended. Extremities: No lower extremity edema. SCDs. Psych: Alert, answers questions appropriately. Procedures None Urinary Catheter: No Vascular Central Line Catheter: No A/P Problem List: (1) Atrial fibrillation with RVR ICD Code: I48.91 Status: Acute (2) Chronic a-fib ICD Code: I48.2 Status: Chronic (3) Lactic acidosis ICD Code: E87.2 Status: Resolved (4) Alcoholism /alcohol abuse ICD Code: F10.20 Status: Chronic (5) History of coronary artery disease ICD Code: Z86.79 Status: Chronic (6) Chest pain, rule out acute myocardial infarction ICD Code: R07.9 Status: Resolved (7) Hypertension ICD Code: I10 Status: Chronic (8) Diabetes mellitus ICD Code: E11.9 Status: Chronic (9) COPD (chronic obstructive pulmonary disease) ICD Code: J44.9 Status: Chronic (10) Alcohol withdrawal ICD Code: F10.239 Status: Acute Assessment and Plan 1. Atrial fibrillation with RVR: Patient has chronic atrial fibrillation. Had been on Coumadin previously, but this was discontinued likely secondary to history of alcohol abuse and frequent falls. Appreciate cardiology recommendations. Rate controlled. Continue oral Cardizem. Switch to long- acting. Patient continues to have PVCs. Continue aspirin. Lovenox on hold. Cardiology has signed off. 2. Chest pain: Likely secondary to A. fib. Serial cardiac enzymes are negative. Appreciate cardiology recommendations. 3. Lactic acidosis: Likely secondary to A. fib with RVR, alcohol withdrawal. Resolved. Continue IV fluids. 4. Alcohol abuse, withdrawal: Improving. Patient drinks a pint of vodka daily. Continue CIWA protocol. Patient has been counseled regarding cessation of alcohol use. Withdrawal precautions. Continue thiamine, folate acid, multivitamin. Continue clonidine. Wean off Precedex drip as tolerated. 5. Liver lesion: Nonspecific 1.9 cm lesion in the left lobe of the liver seen on CT. Radiology recommends nonemergent liver ultrasound. 6. Thrombocytopenia: Likely secondary to alcohol abuse. No evidence of bleeding at this time. HIT negative. 7. Hypertension: Likely exacerbated by alcohol withdrawal, pain. Clonidine, diltiazem. Vasotec as needed. 8. COPD: Patient continues to smoke one half pack per day. Was counseled to quit smoking. Continue bronchodilators, oxygen. 9. Diabetes mellitus: Diet-controlled. Monitor Accu-Cheks and cover with sliding scale insulin. 10. DVT prophylaxis: Lovenox. Discharge Planning Will need SNF. Possible discharge next 1-2 days. Abram German MD Oct 29, 2016 09:30
[2016-10-29] MEDS ORDERED: cloNIDine HCL 0.1 MG TAB PO PRN (09:45)
[2016-10-29] MEDS: MORPHINE SULFATE 4 MG/ML INJ IV PRN ×3 (12:39→20:29)
[2016-10-29] MEDS: ENOXAPARIN SODIUM 40 MG/0.4 ML SYRINGE SQ SCH (17:44)
[2016-10-29] MEDS: TAMSULOSIN HCL 0.4 MG CAP PO SCH (20:28)
[2016-10-29] MEDS ORDERED: diphenhydrAMINE HCL 25 MG CAP PO ONE (22:30)
[2016-10-30] VITALS (8 sets, daily range): BP systolic 109–141; BP diastolic 57–77; PULSE 63–88; RESP 18–20; TEMP 97.4–98.2; O2SAT 94–99
[2016-10-30] MEDS: CHLORHEXIDINE GLUCONATE 2 % 1 PACK (2 CLOTHS)(taper/protocol) TOP SCH (03:50)
[2016-10-30] MEDS: INSULIN ASPART SUPPLEMENTAL SCALE SQ SCH ×4 (06:09→20:03)
[2016-10-30] MEDS ORDERED: MULTIVITAMIN INJ 10 ML, FOLIC ACID INJ 1 MG in SODIUM CHLORID 0.9% 500 ML INJ 500 ML IV SCH (09:00)
[2016-10-30] MEDS: SODIUM CHLORIDE 0.9% FLUSH 5 ML FLUSH FLUSH SCH ×2 (09:00→20:02)
[2016-10-30] MEDS: MULTIVITAMIN TAB PO SCH (09:01)
[2016-10-30] MEDS: FOLIC ACID 1 MG TAB PO SCH (09:01)
[2016-10-30] MEDS: ASPIRIN EC 325 MG TABEC PO SCH (09:01)
[2016-10-30] MEDS: DILTIAZEM-CD 240 MG CAP ER PO SCH (09:01)
[2016-10-30] MEDS: METOPROLOL TARTRATE 25 MG TAB PO SCH ×2 (09:01→20:02)
[2016-10-30] MEDS: DOCUSATE SODIUM 100 MG CAP PO SCH ×2 (09:02→20:02)
[2016-10-30] MEDS: THIAMINE HCL 100 MG TAB PO SCH (09:02)
[2016-10-30] MEDS: MORPHINE SULFATE 4 MG/ML INJ IV PRN (13:06)
[2016-10-30] MEDS ORDERED: CARD240C6 PO (14:08)
[2016-10-30] MEDS ORDERED: THERTAB15 PO (14:08)
[2016-10-30] MEDS ORDERED: FOLI1TAB4 PO (14:08)
[2016-10-30] MEDS ORDERED: METO25TA3 PO (14:08)
[2016-10-30] MEDS ORDERED: VITA100T2 PO (14:08)
--- NOTE | 2016-10-30 14:08 | HHI.DCPOC ---
Discharge Care Plan Diagnosis: (1) Chest pain, rule out acute myocardial infarction (2) Atrial fibrillation with RVR (3) History of coronary artery disease (4) Chronic a-fib (5) Alcoholism /alcohol abuse (6) Hypertension (7) Alcohol withdrawal (8) Diabetes mellitus Goals to Promote Your Health * To prevent worsening of your condition and complications * To maintain your health at the optimal level Directions to Meet Your Goals Take your medications as prescribed Follow your dietary instruction Follow activity as directed Keep your appointments as scheduled Take your immunizations and boosters as scheduled If your symptoms worsen call your PCP, if no PCP go to Urgent Care Center or Emergency Room Smoking is Dangerous to Your Health. Avoid second hand smoke Call the 24-hour hour crisis hotline for domestic abuse at Abram German MD Oct 30, 2016 14:08
--- NOTE | 2016-10-30 14:29 | HHI.PR ---
Subjective Remarks Follow up a-fib, EtOH withdrawal. Patient reports insomnia. States that he feels "shaky inside". Denies chest pain, dyspnea. Objective Vitals Vital Signs Date Time Temp Pulse Resp B/P Pulse Ox O2 Delivery O2 Flow Rate FiO2 10/30/16 12:00 Room Air 3.00 21 10/30/16 12:00 98.2 66 20 109/64 94 10/30/16 08:05 78 10/30/16 08:00 Room Air 10/30/16 08:00 97.6 83 20 128/60 99 10/30/16 04:00 97.4 72 18 123/64 94 10/30/16 00:00 97.5 67 19 111/57 95 10/29/16 20:00 Room Air 10/29/16 20:00 97.7 80 18 116/62 94 10/29/16 20:00 84 10/29/16 16:00 Room Air 3.00 21 10/29/16 16:00 97.5 86 16 135/66 95 I/O 10/29/16 10/29/16 10/29/16 10/30/16 10/30/16 10/30/16 07:00 15:00 23:00 07:00 15:00 23:00 Intake Total 749 ml 120 ml 800 ml 0 ml Output Total 650 ml Balance 99 ml 120 ml 800 ml 0 ml Intake Oral 650 ml 120 ml 800 ml IV Total 99 ml 0 ml Output Urine Total 650 ml # Voids 2 3 # Bowel Movements 1 Result Diagram: 10/28/16 0457 10/28/16 [address] Angiography 10/24/16613 Signed Impressions: Service Date/Time: Monday, October 24, 2016 06:30 - CONCLUSION: 1. No evidence for pulmonary emboli. 2. Moderate/severe emphysema without infiltrate. 3. Nonspecific 1.9 cm low-density in the left lobe of the liver. Nonemergent abdominal sonogram maybe warranted. 4. Left-sided pacemaker. Joe Suero MD Chest X-Ray 10/24/16512 Signed Impressions: Service Date/Time: Monday, October 24, 2016 05:21 - CONCLUSION: No acute disease. Joe Suero MD Objective Remarks General: No acute distress. Heart: Irregular rhythm. No murmur. Lungs: Scattered wheeze. Breathing is nonlabored. Abdomen: Soft, nontender, nondistended. Extremities: No lower extremity edema. SCDs. Psych: Alert, answers questions appropriately. Procedures None Urinary Catheter: No Vascular Central Line Catheter: No A/P Problem List: (1) Atrial fibrillation with RVR ICD Code: I48.91 Status: Acute (2) Chronic a-fib ICD Code: I48.2 Status: Chronic (3) Lactic acidosis ICD Code: E87.2 Status: Resolved (4) Alcoholism /alcohol abuse ICD Code: F10.20 Status: Chronic (5) History of coronary artery disease ICD Code: Z86.79 Status: Chronic (6) Chest pain, rule out acute myocardial infarction ICD Code: R07.9 Status: Resolved (7) Hypertension ICD Code: I10 Status: Chronic (8) Diabetes mellitus ICD Code: E11.9 Status: Chronic (9) COPD (chronic obstructive pulmonary disease) ICD Code: J44.9 Status: Chronic (10) Alcohol withdrawal ICD Code: F10.239 Status: Acute Assessment and Plan 1. Atrial fibrillation with RVR: Patient has chronic atrial fibrillation. Had been on Coumadin previously, but this was discontinued likely secondary to history of alcohol abuse and frequent falls. Appreciate cardiology recommendations. Rate controlled. Continue oral Cardizem. Patient continues to have PVCs. Continue aspirin. Lovenox on hold. Cardiology has signed off. 2. Chest pain: Likely secondary to A. fib. Serial cardiac enzymes are negative. Appreciate cardiology recommendations. 3. Lactic acidosis: Likely secondary to A. fib with RVR, alcohol withdrawal. Resolved. 4. Alcohol abuse, withdrawal: Improving. Patient drinks a pint of vodka daily. Continue CIWA protocol. Patient has been counseled regarding cessation of alcohol use. Withdrawal precautions. Continue thiamine, folate acid, multivitamin. Continue clonidine. Off precedex drip. No longer requiring lorazepam. 5. Liver lesion: Nonspecific 1.9 cm lesion in the left lobe of the liver seen on CT. Radiology recommends nonemergent liver ultrasound. 6. Thrombocytopenia: Likely secondary to alcohol abuse. No evidence of bleeding at this time. HIT negative. 7. Hypertension: Likely exacerbated by alcohol withdrawal, pain. Clonidine, diltiazem. Vasotec as needed. 8. COPD: Patient continues to smoke one half pack per day. Was counseled to quit smoking. Continue bronchodilators, oxygen. 9. Diabetes mellitus: Diet-controlled. Monitor Accu-Cheks and cover with sliding scale insulin. 10. DVT prophylaxis: Lovenox. 11. Insomnia: Temazepam. Discharge Planning Will need SNF vs inpatient rehab. Possible discharge next 1-2 days. Abram German MD Oct 30, 2016 14:29
[2016-10-30] MEDS ORDERED: TEMAZEPAM 7.5 MG CAP PO PRN (15:00)
[2016-10-30] MEDS: ENOXAPARIN SODIUM 40 MG/0.4 ML SYRINGE SQ SCH (17:18)
[2016-10-30] MEDS: TAMSULOSIN HCL 0.4 MG CAP PO SCH (20:02)
[2016-10-31] VITALS: BP 114/64; PULSE 66; RESP 18; TEMP 97.8; O2SAT 100
[2016-10-31 04:00] VITALS: BP 115/58; PULSE 75; RESP 18; TEMP 97.8; O2SAT 100
[2016-10-31] MEDS: INSULIN ASPART SUPPLEMENTAL SCALE SQ SCH ×3 (06:13→16:00)
[2016-10-31 07:58] VITALS: BP 128/58; PULSE 69; RESP 18; TEMP 97.7; O2SAT 99
[2016-10-31 08:00] VITALS: PULSE 86
[2016-10-31] MEDS: ASPIRIN EC 325 MG TABEC PO SCH (08:36)
[2016-10-31] MEDS: METOPROLOL TARTRATE 25 MG TAB PO SCH (08:36)
[2016-10-31] MEDS: DOCUSATE SODIUM 100 MG CAP PO SCH (08:36)
[2016-10-31] MEDS: DILTIAZEM-CD 240 MG CAP ER PO SCH (08:36)
[2016-10-31] MEDS: SODIUM CHLORIDE 0.9% FLUSH 5 ML FLUSH FLUSH SCH (08:36)
[2016-10-31] MEDS: THIAMINE HCL 100 MG TAB PO SCH (08:36)
[2016-10-31] MEDS: FOLIC ACID 1 MG TAB PO SCH (08:36)
[2016-10-31] MEDS: MULTIVITAMIN TAB PO SCH (08:36)
--- NOTE | 2016-10-31 10:56 | HHI.DS ---
Discharge Summary Admission Date Oct 25, 2016 at 10:25 Discharge Date: Oct 31, 2016 Admitting Diagnosis CP RO [place], ho CAD, lactic acidosis (1) Atrial fibrillation with RVR ICD Code: I48.91 (2) Chronic a-fib ICD Code: I48.2 (3) Lactic acidosis ICD Code: E87.2 (4) Alcoholism /alcohol abuse ICD Code: F10.20 (5) History of coronary artery disease ICD Code: Z86.79 (6) Chest pain, rule out acute myocardial infarction ICD Code: R07.9 (7) Hypertension ICD Code: I10 (8) Diabetes mellitus ICD Code: E11.9 (9) COPD (chronic obstructive pulmonary disease) ICD Code: J44.9 (10) Alcohol withdrawal ICD Code: F10.239 Procedures None Brief History - From Admission The patient is a 76-year-old male with a past medical history of atrial fibrillation and heart failure who is presenting to the hospital with chest pain and shortness of breath. The patient says he was diagnosed with atrial fibrillation about 7 years ago and he says since then he has had problems with an elevated heart rate and episodes of chest pain and shortness of breath. He says the pain is located in the center of his chest and radiates down both arms. He rates the pain as a 9 out of 10 in severity. He says it is accompanied by shortness of breath and sweating. He says he felt like he couldn 't breathe. He says he generally gets these kind of episodes of chest pain one his atrial fibrillation acts up. He says he had a stress test done 6 months ago that was normal. He says his clinical academic allergist is in [place] and he doesn't have a clinical academic allergist here in [place]. He says he had an ablation and a pacemaker placed years ago. He also mentions that he drinks a lot of alcohol and feels shaky. He is requesting medication to help with that. He denies a history of alcohol withdrawal seizure. The patient does endorse nausea and lack of appetite. Patient also states that he feels his right leg and arm are weak. He thinks he may have had a stroke in the past but he is not sure. CBC/BMP: 10/28/16 0457 10/28/[address] Angiography 10/24/16613 Signed Impressions: Service Date/Time: Monday, October 24, 2016 06:30 - CONCLUSION: 1. No evidence for pulmonary emboli. 2. Moderate/severe emphysema without infiltrate. 3. Nonspecific 1.9 cm low-density in the left lobe of the liver. Nonemergent abdominal sonogram maybe warranted. 4. Left-sided pacemaker. Joe Suero MD Chest X-Ray 10/24/1613 Signed Impressions: Service Date/Time: Monday, October 24, 2016 05:21 - CONCLUSION: No acute disease. Joe Suero MD PE at Discharge General: No acute distress. Heart: Irregular rhythm. No murmur. Lungs: Clear to auscultation bilaterally. Breathing is nonlabored. Abdomen: Soft, nontender, nondistended. Extremities: No lower extremity edema. SCDs. Psych: Alert, answers questions appropriately. Pt update on day of discharge The patient has no complaints at this time. States that he ambulated with physical therapy earlier today. Denies chest pain or dyspnea. Feels that he is ready to go to rehabilitation. Hospital Course The patient was admitted for treatment of atrial fibrillation with RVR. He was started on Cardizem drip and transitioned to oral Cardizem. Cardiology was consulted. Anticoagulation was not recommended secondary to patient's alcohol abuse history. He developed alcohol withdrawal. He was continued on CIWA protocol. He had worsening of his symptoms and was transferred to the intensive care unit and started on Precedex drip. This was weaned and the patient's symptoms improved. Withdrawal symptoms resolved and the patient was felt to be stable for discharge to inpatient rehabilitation. Pt Condition on Discharge: Stable Discharge Disposition: Rehab Inpatient Discharge Time: <= 30 minutes Discharge Instructions DIET: Follow Instructions for: Diabetic Diet Activities you can perform: Regular-No Restrictions Follow up Referrals: Cardiology - 2 Weeks PCP Follow-up - 1 Week New Medications: Diltiazem CD 24 HR (Cardizem CD 24 HR) 240 Mg Caper 240 MG PO DAILY a-fib #30 Ref 0 CAP Folic Acid (Folate) 1 Mg Tab 1 MG PO DAILY supplement #30 TAB Metoprolol Tartrate (Metoprolol Tartrate) 25 Mg Tab 25 MG PO Q12HR Blood Pressure Management #60 TAB Multiple Vitamin (Thera/Beta-Carotene) 1 Tab Tab 1 TAB PO DAILY supplement #30 TAB Thiamine (Vitamin B-1) 100 Mg Tab 100 MG PO DAILY supplement #30 TAB Continued Medications: Tamsulosin (Flomax) 0.4 Mg Cap 0.4 MG PO HS Manage Prostate Problems #30 Ref 0 CAP Discontinued Medications: ([blood pressure med]) patient does not know what blood pressure med it is Abram German MD Oct 31, 2016 10:55
[2016-10-31 11:47] VITALS: BP 99/58; PULSE 80; RESP 18; TEMP 97.8; O2SAT 97
[2016-10-31] MEDS ORDERED: TEMA7.5C9 PO (15:38)
[2016-10-31] MEDS ORDERED: ASPI325T PO (15:38)
[2016-10-31] MEDS ORDERED: OXYC-392 PO (15:38)
== END 2016-10-31 17:51 | DRG 309 ==
LOC: NEPE 04:56 → NEDA 07:08 → NEDH 13:52 → HCIS 10-25 01:04 → OBSVTOIN 10-25 10:25 → HIMN 10-26 01:00 → N04B 10-29 11:02
PROVIDERS: ADMIT Family Medicine; ATTEND Family Medicine
DX: I48.2 Chronic atrial fibrillation (principal); E87.2 Acidosis; I47.2 Ventricular tachycardia; F10.231 Alcohol dependence with withdrawal delirium; I50.9 Heart failure, unspecified; J44.9 Chronic obstructive pulmonary disease, unspecified; D69.59 Other secondary thrombocytopenia; I25.2 Old myocardial infarction; R63.0 Anorexia; I25.10 Atherosclerotic heart disease of native coronary artery without angina pectoris; Z86.73 Personal history of transient ischemic attack (TIA), and cerebral infarction without residual deficits; I10 Essential (primary) hypertension; Z85.46 Personal history of malignant neoplasm of prostate; F17.210 Nicotine dependence, cigarettes, uncomplicated; E11.9 Type 2 diabetes mellitus without complications; Z95.0 Presence of cardiac pacemaker; Z79.82 Long term (current) use of aspirin; K76.9 Liver disease, unspecified; R29.6 Repeated falls; I49.3 Ventricular premature depolarization; G47.00 Insomnia, unspecified
CPT/HCPCS: 71010; 71275; 76937; 80048; 80053; 80320; 81001; 82550; 82552; 82948; 83605; 83690; 83735; 83880; 84100; 84443; 84484; 85025; 85379; 85610; 85730; 86022; 86140; 86850; 86900; 86901; 87040; 87641; 93005; 93306; 94150; 96365; 96368; 96375; C9113; J1630; J1650; J1815; J2060; J2270; J2405; J3411; J3475; J7030; J7040; J7050; Q9967